=== PATIENT | female | born 1955 | race Hispanic/Latino ===

== ENCOUNTER 2021-04-07 15:06 | Emergency (ER) | payer MEDICARE ==
[~2021-04-07] VITALS: Ht 165.1 cm; Wt 102.1 kg
[2021-04-07 15:47] LABS: BASOPHILS % 0.6 % (0.0-1.0); EOSINOPHILS # (AUTO) 0.2 (0.0-0.4); EOSINOPHILS % 2.7 % (0.0-6.0); HEMATOCRIT 37.5 % (34.2-44.1); HEMOGLOBIN 12.6 g/dL (12.0-16.0); LYMPHOCYTES # (AUTO) 2.9 (1.0-3.2); LYMPHOCYTES % 40.9 % (18.0-39.1); MEAN CORPUSCULAR HEMOGLOBIN 29.9 pg (28-32); MEAN CORPUSCULAR HGB CONC 33.6 g/dL (31-35); MEAN CORPUSCULAR VOLUME 88.9 fL (81-99); MONOCYTES # (AUTO) 0.7 (0.2-0.8); MONOCYTES % 10.1 % (4.4-11.3); NEUTROPHILS # (AUTO) 3.2 (2.1-6.9); NEUTROPHILS % 45.3 % (38.7-80.0); PLATELET COUNT 256 x10e3/uL (140-360); RED BLOOD COUNT 4.22 x10e6/uL (3.6-5.1); RED CELL DISTRIBUTION WIDTH 12.7 % (11.7-14.4)
[2021-04-07 15:50] LABS: CLARITY,URINE HAZY (CLEAR); COLOR,URINE YELLOW (YELLOW); KETONES,URINE NEGATIVE (NEGATIVE); LEUKOCYTE ESTERASE ,URINE MODERATE (NEGATIVE); NITRITE,URINE NEGATIVE (NEGATIVE); PROTEIN,URINE DIPSTICK NEGATIVE (NEGATIVE); URINE UROBILINOGEN 0.2 mg/dL (0.2 - 1)
[2021-04-07 16:00] LABS: ALBUMIN 3.5 g/dL (3.5-5.0); ANION GAP 14.7 mmol/L (8-16); CALCIUM 8.6 mg/dL (8.4-10.2); CREATININE, SERUM 0.65 mg/dL (0.57-1.11); POTASSIUM 4.7 mmol/L (3.5-5.1)
[2021-04-07 16:03] LABS: BACTERIA,URINE MANY /HPF; EPITHELIAL CELLS,URINE MODERATE /LPF; WBC,URINE (MAN) 21-50 /HPF (0-5)
[2021-04-07] MEDS ORDERED: PIPERACILLIN/TAZOBACTAM 3.375 GM in SODIUM CHLORIDE 0.9% 50ML 50 ML IV ONE (16:15)
[2021-04-07] MEDS ORDERED: SODIUM CHLORIDE 0.9% 500ML 500 ML IV ONE (16:45)
[2021-04-07] MEDS ORDERED: SODIUM CHLORIDE 0.9% 500ML 500 ML ONE (16:53)
== END 2021-04-07 19:30 ==
LOC: ER 15:55
DX: R53.1 Weakness (principal); R53.83 Other fatigue; N39.0 Urinary tract infection, site not specified; E11.65 Type 2 diabetes mellitus with hyperglycemia; L89.154 Pressure ulcer of sacral region, stage 4; E03.9 Hypothyroidism, unspecified; F41.9 Anxiety disorder, unspecified; G82.20 Paraplegia, unspecified
CPT/HCPCS: 36415; 71045; 80053; 81001; 83605; 85025; 87040; 87086; 87186; 93005; 99283; J2543; J7040

== ENCOUNTER 2021-04-21 19:17 | Inpatient (IN) | payer MEDICARE, OTHER ==
[~2021-04-21] VITALS: Ht 165.1 cm; Wt 102.1 kg
[2021-04-21] MEDS: ALBUTEROL SULF 0.083% NEB SOLN 3 ML NEB NEB SCH (00:30)
[2021-04-21] MEDS ORDERED: ACETAMINOPHEN 325 MG TAB PO ONE (20:00)
[2021-04-21] MEDS ORDERED: CEFTRIAXONE 1 GM in SODIUM CHLORIDE 0.9% 50ML 50 ML IV ONE (20:00)
[2021-04-21 20:07] LABS: BASOPHILS % 0.3 % (0.0-1.0); EOSINOPHILS % 0.2 % (0.0-6.0); HEMATOCRIT 34.1 % (34.2-44.1); HEMOGLOBIN 11.3 g/dL (12.0-16.0); LYMPHOCYTES # (AUTO) 1.4 (1.0-3.2); LYMPHOCYTES % 15.1 % (18.0-39.1); MEAN CORPUSCULAR HEMOGLOBIN 29.9 pg (28-32); MEAN CORPUSCULAR HGB CONC 33.1 g/dL (31-35); MEAN CORPUSCULAR VOLUME 90.2 fL (81-99); MONOCYTES # (AUTO) 1.1 (0.2-0.8); MONOCYTES % 12.2 % (4.4-11.3); NEUTROPHILS # (AUTO) 6.4 (2.1-6.9); NEUTROPHILS % 71.5 % (38.7-80.0); PLATELET COUNT 192 x10e3/uL (140-360); RED BLOOD COUNT 3.78 x10e6/uL (3.6-5.1); RED CELL DISTRIBUTION WIDTH 12.9 % (11.7-14.4)
[2021-04-21 20:31] LABS: ANION GAP 17.3 mmol/L (8-16); BLOOD UREA NITROGEN 9 mg/dL (7-26); BUN/CREATININE RATIO 13 (6-25); CALCIUM 8.7 mg/dL (8.4-10.2); CARBON DIOXIDE 21 mmol/L (22-29); CHLORIDE 91 mmol/L (98-107); CREATINE KINASE 26 IU/L (29-168); CREATININE, SERUM 0.69 mg/dL (0.57-1.11); EST GLOMERULAR FILTRATION RATE 85 ML/MIN (60-); GLUCOSE 167 mg/dL (74-118); POTASSIUM 4.3 mmol/L (3.5-5.1); SODIUM 125 mmol/L (136-145)
[2021-04-21 20:38] LABS: CLARITY,URINE HAZY (CLEAR); COLOR,URINE YELLOW (YELLOW); KETONES,URINE NEGATIVE (NEGATIVE); LEUKOCYTE ESTERASE ,URINE LARGE (NEGATIVE); NITRITE,URINE POSITIVE (NEGATIVE); PROTEIN,URINE DIPSTICK NEGATIVE (NEGATIVE); URINE UROBILINOGEN 0.2 mg/dL (0.2 - 1)
[2021-04-21] MEDS ORDERED: SODIUM CHLORIDE 0.9% 1000ML 1,000 ML IV ONE (20:45)
[2021-04-21 20:50] LABS: BACTERIA,URINE MODERATE /HPF; RBC,URINE 0-5 /HPF (0-5); WBC,URINE (MAN) 21-50 /HPF (0-5); YEAST,URINE MANY
[2021-04-21] MEDS ORDERED: DEXTROSE 50% SYRINGE 50 ML IV PRN (21:15)
[2021-04-21] MEDS ORDERED: ONDANSETRON HCL INJ 2MG/ML 2ML 2 MG/ML VIAL IV PRN (21:30)
[2021-04-21] MEDS ORDERED: ACETAMINOPHEN 325 MG TAB PO PRN (21:30)
[2021-04-21 21:35] LABS: HYPOCHROMASIA SLIGHT; LYMPHOCYTES % (MANUAL) 8 % (19-48); METAMYELOCYTES % (MANUAL) 1 % (0-0); MONOCYTES % (MANUAL) 14 % (3.4-9.0); NEUTROPHILS % (MANUAL) 67 % (40-74); PLATELET ESTIMATE ADEQUATE; PLATELET MORPHOLOGY COMMENT NORMAL; RBC MORPHOLOGY COMMENT NORMAL
[2021-04-22] VITALS (9 sets, daily range): BP systolic 97–125; BP diastolic 61–74
[2021-04-22] MEDS ORDERED: IBUPROFEN 600 MG TAB PO STA (00:16)
[2021-04-22] MEDS ORDERED: IBUPROFEN 600 MG TAB ONE (00:17)
[2021-04-22] MEDS ORDERED: HYDROCODON-ACE1 EAC9 PO (00:25)
[2021-04-22] MEDS ORDERED: LYRICA150 MG PO (00:25)
[2021-04-22] MEDS: ALBUTEROL SULF 0.083% NEB SOLN 3 ML NEB NEB SCH ×6 (00:30→20:30)
[2021-04-22] MEDS: IPRATROPIUM BROMIDE 0.02% 2.5 ML NEB NEB SCH ×6 (00:30→22:38)
[2021-04-22] MEDS: SODIUM CHLORIDE 0.9% 1000ML 1,000 ML IV SCH ×4 (01:04→22:05)
[2021-04-22] MEDS: HYDROCODONE/APAP 10MG-325MG TAB PO PRN ×3 (02:09→15:04)
[2021-04-22 06:15] LABS: BASOPHILS % 0.3 % (0.0-1.0); EOSINOPHILS # (AUTO) 0.1 (0.0-0.4); EOSINOPHILS % 0.9 % (0.0-6.0); HEMATOCRIT 31.2 % (34.2-44.1); HEMOGLOBIN 10.4 g/dL (12.0-16.0); LYMPHOCYTES # (AUTO) 0.9 (1.0-3.2); LYMPHOCYTES % 13.2 % (18.0-39.1); MEAN CORPUSCULAR HEMOGLOBIN 29.8 pg (28-32); MEAN CORPUSCULAR HGB CONC 33.3 g/dL (31-35); MEAN CORPUSCULAR VOLUME 89.4 fL (81-99); MONOCYTES % 13.5 % (4.4-11.3); PLATELET COUNT 156 x10e3/uL (140-360); RED BLOOD COUNT 3.49 x10e6/uL (3.6-5.1)
[2021-04-22] MEDS: PREGABALIN 75 MG CAP PO SCH ×3 (06:23→18:47)
[2021-04-22 06:45] LABS: ALBUMIN 2.6 g/dL (3.5-5.0); ALBUMIN/GLOBULIN RATIO 0.9 (0.8-2.0); ANION GAP 15.9 mmol/L (8-16); CALCIUM 7.9 mg/dL (8.4-10.2); CREATININE, SERUM 0.61 mg/dL (0.57-1.11); POTASSIUM 3.9 mmol/L (3.5-5.1)
[2021-04-22 06:55] LABS: CREATINE KINASE 22 IU/L (29-168)
[2021-04-22] MEDS: CEFTRIAXONE 1 GM in SODIUM CHLORIDE 0.9% 50ML 50 ML IV SCH (08:41)
[2021-04-22] MEDS: INSULIN REGULAR, HUMAN 100 UNIT/1 ML SQ SCH ×4 (08:48→21:00)
[2021-04-22] MEDS: METHOCARBAMOL 750 MG TAB PO SCH ×2 (11:54→22:05)
[2021-04-22] MEDS ORDERED: FLUCONAZOLE 100 MG TAB PO SCH (14:00)
[2021-04-22] MEDS ORDERED: AMIODARONE HCL 150 MG/100 ML BAG IV ONE (17:45)
[2021-04-22] MEDS ORDERED: AMIODARONE HCL 100 ML IV ONE (18:00)
[2021-04-22] MEDS ORDERED: DIPHENHYDRAMINE HCL 25 MG CAP PO PRN (18:30)
[2021-04-22] MEDS ORDERED: METHYLPREDNISOLONE SOD SUCC 125 MG/2ML VIAL IV ONE (18:55)
[2021-04-22] MEDS ORDERED: DIPHENHYDRAMINE HCL INJ 50 MG/ML VIAL IV ONE (18:55)
[2021-04-22] MEDS: ENOXAPARIN SODIUM INJ 100 MG/ML SYR SC SCH (18:58)
[2021-04-22 19:54] LABS: CREATINE KINASE 16 IU/L (29-168)
[2021-04-23] VITALS: BP 137/70
[2021-04-23] MEDS: ALBUTEROL SULF 0.083% NEB SOLN 3 ML NEB NEB SCH ×6 (01:00→19:25)
[2021-04-23] MEDS: IPRATROPIUM BROMIDE 0.02% 2.5 ML NEB NEB SCH ×4 (02:00→18:20)
[2021-04-23] MEDS: HYDROCODONE/APAP 10MG-325MG TAB PO PRN ×4 (02:50→22:11)
[2021-04-23 04:00] VITALS: BP 124/74
[2021-04-23] MEDS: SODIUM CHLORIDE 0.9% 1000ML 1,000 ML IV SCH ×3 (05:15→21:59)
[2021-04-23] MEDS: PREGABALIN 75 MG CAP PO SCH ×4 (06:00→18:20)
[2021-04-23] MEDS: METHOCARBAMOL 750 MG TAB PO SCH ×4 (06:00→22:00)
[2021-04-23] MEDS: ENOXAPARIN SODIUM INJ 100 MG/ML SYR SC SCH (06:30)
[2021-04-23] MEDS ORDERED: GUAIFENESIN/DEXTROMETHORPHAN LIQD 5 ML UDC PO PRN ×2 (06:45→16:00)
[2021-04-23 07:42] VITALS: BP 124/74
[2021-04-23] MEDS: CEFTRIAXONE 1 GM in SODIUM CHLORIDE 0.9% 50ML 50 ML IV SCH (08:26)
[2021-04-23 08:52] VITALS: BP 124/74
[2021-04-23] MEDS: INSULIN REGULAR, HUMAN 100 UNIT/1 ML SQ SCH ×4 (09:21→21:50)
[2021-04-23] MEDS ORDERED: FUROSEMIDE40 MG PO ×2 (11:36→15:47)
[2021-04-23] MEDS ORDERED: VITAMIN C1000 MG PO (12:32)
[2021-04-23] MEDS ORDERED: FLUTICASONE PRO16 GM (12:32)
[2021-04-23] MEDS ORDERED: ASPIRIN81 MG PO (12:32)
[2021-04-23] MEDS ORDERED: LEVOTHYROXINE75 MCG PO (12:32)
[2021-04-23] MEDS ORDERED: METHOCARBAMOL750 MG PO (12:32)
[2021-04-23] MEDS ORDERED: METFORMIN HCL500 MG PO (12:32)
[2021-04-23] MEDS ORDERED: VITAMIN D3 COM1 EACH PO (12:32)
[2021-04-23] MEDS ORDERED: SPIRONOLACTONE25 MG PO ×2 (12:32→15:56)
[2021-04-23] MEDS ORDERED: PROTONIX20 MG PO (12:32)
[2021-04-23] MEDS ORDERED: OXYBUTYNIN CHLOR5 MG PO (12:32)
[2021-04-23] MEDS ORDERED: VOLTAREN ARTHRI20 GM (12:32)
[2021-04-23] MEDS ORDERED: LANTUS 3ML100 UNITS/ SQ (12:32)
[2021-04-23] MEDS ORDERED: MYRBETRIQ50 MG PO (12:32)
[2021-04-23] MEDS ORDERED: LOSARTAN POTASS25 MG PO (12:35)
[2021-04-23] MEDS: INSULIN GLARGINE 100 UNITS/ML VIAL SQ SCH (15:09)
[2021-04-23] MEDS ORDERED: DOCUSATE SODIU100 MG PO (15:47)
[2021-04-23] MEDS ORDERED: CRANBERRY400 M1 PO (15:47)
[2021-04-23] MEDS ORDERED: CLOTRIMAZOLE-BE15 GM TOP (15:47)
[2021-04-23] MEDS ORDERED: ORAL ANALGESIC12 ML PO (15:47)
[2021-04-23] MEDS ORDERED: ERGOCAL62.5 MCG PO (15:47)
[2021-04-23] MEDS ORDERED: DULCOLAX10 MG PR (15:47)
[2021-04-23] MEDS ORDERED: CARVEDILOL3.125 MG PO (15:47)
[2021-04-23] MEDS ORDERED: ALL DAY ALLERGY10 MG PO (15:47)
[2021-04-23] MEDS ORDERED: GUAIFENESIN-DM 15 ML PO (15:47)
[2021-04-23] MEDS ORDERED: FLONASE ALLERG9.9 ML INH (15:47)
[2021-04-23] MEDS ORDERED: CEPACOL SORE T1 EAC5 PO (15:47)
[2021-04-23] MEDS ORDERED: CLONIDINE HCL0.1 MG PO (15:47)
[2021-04-23 15:56] LABS: ANION GAP 17.6 mmol/L (8-16); CALCIUM 8.9 mg/dL (8.4-10.2); CREATININE, SERUM 0.71 mg/dL (0.57-1.11); POTASSIUM 3.6 mmol/L (3.5-5.1)
[2021-04-23] MEDS ORDERED: QUESTRAN PACKET4 GM PO (15:56)
[2021-04-23] MEDS ORDERED: MULTIVITAMINS1 EAC6 PO (15:56)
[2021-04-23] MEDS ORDERED: SIMETHICONE80 MG PO (15:56)
[2021-04-23] MEDS ORDERED: PROAIR HFA INH8.5 GM INH (15:56)
[2021-04-23] MEDS ORDERED: LOPERAMIDE2 MG PO (15:56)
[2021-04-23] MEDS ORDERED: OMEPRAZOLE20 M1 PO (15:56)
[2021-04-23] MEDS ORDERED: ACIDOPHILUS1 EAC1 PO (15:56)
[2021-04-23] MEDS ORDERED: PRO-STAT MAX L887 ML PO (15:56)
[2021-04-23] MEDS ORDERED: ZINC SULFATE50 M1 PO (15:56)
[2021-04-23] MEDS ORDERED: POTASSIUM CHLO20 ME1 PO (15:56)
[2021-04-23] MEDS ORDERED: MUPIROCIN22 GM TOP (15:56)
[2021-04-23] MEDS ORDERED: MAALOX MAXIMUM355 ML PO (15:56)
[2021-04-23] MEDS ORDERED: SODIUM CHLORIDE1 GM PO (15:56)
[2021-04-23] MEDS ORDERED: ZOFRAN4 MG PO (15:56)
[2021-04-23] MEDS ORDERED: NON-FORMULARY MEDICATION (Fluticasone Propionate* (Flonase Allergy Relief*) 1 EACH) INH PRN (16:00)
[2021-04-23] MEDS ORDERED: CHOLESTYRAMINE 4 GM PACKET PO PRN (16:00)
[2021-04-23] MEDS ORDERED: LOPERAMIDE HCL 2 MG CAP PO PRN (16:00)
[2021-04-23] MEDS ORDERED: MAGNESIUM/ALUMINUM/SIMETHICONE 30 ML UDC PO PRN (16:00)
[2021-04-23] MEDS ORDERED: ONDANSETRON HCL 4 MG ORAL DISINTEGRATING TAB PO PRN (16:00)
[2021-04-23] MEDS ORDERED: ALBUTEROL SULFATE HFA 8GM INHALATION AEROSOL INH PRN (16:00)
[2021-04-23] MEDS ORDERED: ACETAMINOPHEN 325 MG TAB PO PRN (16:00)
[2021-04-23] MEDS ORDERED: POTASSIUM CHLORIDE 20 MEQ TAB CR PO PRN (16:00)
[2021-04-23] MEDS ORDERED: DOCUSATE SODIUM 100 MG CAP PO PRN (16:00)
[2021-04-23] MEDS ORDERED: SIMETHICONE 80 MG CHEW PO PRN (16:00)
[2021-04-23] MEDS ORDERED: CLONIDINE HCL 0.1 MG TAB PO PRN (16:00)
[2021-04-23] MEDS ORDERED: CHLORASEPTIC SPRAY 177 ML BTL MM PRN (16:00)
[2021-04-23 16:11] VITALS: BP 121/72
[2021-04-23] MEDS ORDERED: CRANBERRY FRUIT 400 MG PO SCH (17:00)
[2021-04-23] MEDS ORDERED: GUAIFENESIN/DEXTROMETHORPHAN 237 ML SYRUP PO PRN (17:30)
[2021-04-23] MEDS: CARVEDILOL 3.125 MG TAB PO SCH (18:00)
[2021-04-23] MEDS: APIXABAN 5 MG TABLET PO SCH (18:19)
[2021-04-23] MEDS: FUROSEMIDE 40 MG TAB PO SCH (18:19)
[2021-04-23] MEDS: BETAMETHASONE/CLOTRIMAZOLE CR 15 GM TUBE TOP SCH (18:20)
[2021-04-23] MEDS: CEPACOL SORE THROAT LOZENGES PO SCH ×2 (18:20→21:57)
[2021-04-23 20:00] VITALS: BP 137/69
[2021-04-23] MEDS: DICLOFENAC SOD 1% GEL 100 GM TUBE TP SCH (21:57)
[2021-04-23] MEDS: OXYBUTYNIN CHLORIDE 5 MG TAB PO SCH (21:57)
[2021-04-23] MEDS: AMITRIPTYLINE HCL 25 MG TAB PO SCH (21:57)
[2021-04-24] VITALS (8 sets, daily range): BP systolic 115–136; BP diastolic 58–67
[2021-04-24] MEDS: PREGABALIN 75 MG CAP PO SCH ×4 (00:23→17:26)
[2021-04-24] MEDS: CEPACOL SORE THROAT LOZENGES PO SCH ×6 (01:06→22:00)
[2021-04-24] MEDS: ALBUTEROL SULF 0.083% NEB SOLN 3 ML NEB NEB SCH ×5 (04:10→20:40)
[2021-04-24] MEDS: IPRATROPIUM BROMIDE 0.02% 2.5 ML NEB NEB SCH ×3 (04:10→20:40)
[2021-04-24] MEDS: METHOCARBAMOL 750 MG TAB PO SCH ×6 (06:00→21:49)
[2021-04-24] MEDS: HYDROCODONE/APAP 10MG-325MG TAB PO PRN ×2 (06:51→20:22)
[2021-04-24] MEDS: LEVOTHYROXINE SODIUM 75 MCG TAB PO SCH (06:51)
[2021-04-24] MEDS: SODIUM CHLORIDE 0.9% 1000ML 1,000 ML IV SCH ×3 (07:40→21:15)
[2021-04-24] MEDS ORDERED: DICLOFENAC SOD 1% GEL 100 GM TUBE TP SCH (09:00)
[2021-04-24] MEDS ORDERED: PANTOPRAZOLE SOD 40 MG TABEC PO SCH (09:00)
[2021-04-24] MEDS ORDERED: ERGOCALCIFEROL 50,000 UNIT CAP PO SCH (09:00)
[2021-04-24] MEDS: CEFTRIAXONE 1 GM in SODIUM CHLORIDE 0.9% 50ML 50 ML IV SCH (10:53)
[2021-04-24] MEDS: LORATADINE 10 MG TAB PO SCH (10:53)
[2021-04-24] MEDS: SPIRONOLACTONE 25 MG TAB PO SCH (10:53)
[2021-04-24] MEDS: ASPIRIN 81 MG CHEW TAB PO SCH (10:53)
[2021-04-24] MEDS: FUROSEMIDE 40 MG TAB PO SCH ×2 (10:54→17:26)
[2021-04-24] MEDS: LACTOBACILLUS ACIDOPHILUS CAPSULE PO SCH (10:54)
[2021-04-24] MEDS: OXYBUTYNIN CHLORIDE 5 MG TAB PO SCH ×3 (10:54→21:46)
[2021-04-24] MEDS: METFORMIN HCL 500 MG TAB PO SCH (10:54)
[2021-04-24] MEDS: LOSARTAN POTASSIUM 25 MG TAB PO SCH (10:54)
[2021-04-24] MEDS: APIXABAN 5 MG TABLET PO SCH ×2 (10:54→17:26)
[2021-04-24] MEDS: CARVEDILOL 3.125 MG TAB PO SCH ×2 (10:54→17:26)
[2021-04-24] MEDS: MULTIVITAMINS/MINERALS TAB PO SCH (10:54)
[2021-04-24] MEDS: SODIUM CHLORIDE 1 GM TAB PO SCH (10:55)
[2021-04-24] MEDS: ZINC SULFATE 220 MG CAP PO SCH (10:55)
[2021-04-24] MEDS: BISACODYL 10 MG SUPP PR SCH (10:55)
[2021-04-24] MEDS: ASCORBIC ACID 500 MG TAB PO SCH (10:55)
[2021-04-24] MEDS: PANTOPRAZOLE SOD 40 MG TABEC PO SCH (10:55)
[2021-04-24] MEDS: INSULIN REGULAR, HUMAN 100 UNIT/1 ML SQ SCH ×4 (10:59→22:15)
[2021-04-24] MEDS: INSULIN GLARGINE 100 UNITS/ML VIAL SQ SCH ×2 (11:00→17:43)
[2021-04-24] MEDS: FLUTICASONE PROPIONATE NASAL SPRAY NS SCH (11:13)
[2021-04-24] MEDS: PROTEIN HYDROLYS PO SCH (11:13)
[2021-04-24] MEDS: AMINO ACIDS PO SCH (11:13)
[2021-04-24] MEDS: BETAMETHASONE/CLOTRIMAZOLE CR 15 GM TUBE TOP SCH ×2 (11:14→17:26)
[2021-04-24] MEDS: MUPIROCIN 2% OINT 22 GM TUBE TOP SCH (11:14)
[2021-04-24] MEDS: DICLOFENAC SOD 1% GEL 100 GM TUBE TP SCH ×3 (11:14→22:34)
[2021-04-24] MEDS: AMITRIPTYLINE HCL 25 MG TAB PO SCH (21:46)
[2021-04-24] MEDS: PIPERACILLIN/TAZOBACTAM 3.375 GM in SODIUM CHLORIDE 0.9% 50ML 50 ML IV SCH (23:17)
[2021-04-25] VITALS (7 sets, daily range): BP systolic 101–130; BP diastolic 43–72
[2021-04-25] MEDS: ALBUTEROL SULF 0.083% NEB SOLN 3 ML NEB NEB SCH ×6 (00:02→20:43)
[2021-04-25] MEDS: PREGABALIN 75 MG CAP PO SCH ×4 (00:10→16:08)
[2021-04-25] MEDS: IPRATROPIUM BROMIDE 0.02% 2.5 ML NEB NEB SCH ×4 (01:00→20:43)
[2021-04-25] MEDS: CEPACOL SORE THROAT LOZENGES PO SCH ×7 (01:55→23:00)
[2021-04-25] MEDS: HYDROCODONE/APAP 10MG-325MG TAB PO PRN ×3 (04:00→21:47)
[2021-04-25] MEDS: SODIUM CHLORIDE 0.9% 1000ML 1,000 ML IV SCH ×3 (05:59→21:03)
[2021-04-25] MEDS: METHOCARBAMOL 750 MG TAB PO SCH ×6 (05:59→22:00)
[2021-04-25] MEDS: LEVOTHYROXINE SODIUM 75 MCG TAB PO SCH (05:59)
[2021-04-25] MEDS: PIPERACILLIN/TAZOBACTAM 3.375 GM in SODIUM CHLORIDE 0.9% 50ML 50 ML IV SCH ×3 (05:59→21:44)
[2021-04-25] MEDS: INSULIN REGULAR, HUMAN 100 UNIT/1 ML SQ SCH ×4 (08:00→21:07)
[2021-04-25] MEDS: INSULIN GLARGINE 100 UNITS/ML VIAL SQ SCH ×2 (09:00→16:15)
[2021-04-25] MEDS: PROTEIN HYDROLYS PO SCH (09:12)
[2021-04-25] MEDS: FLUTICASONE PROPIONATE NASAL SPRAY NS SCH (09:12)
[2021-04-25] MEDS: AMINO ACIDS PO SCH (09:12)
[2021-04-25] MEDS: ASPIRIN 81 MG CHEW TAB PO SCH (09:36)
[2021-04-25] MEDS: SPIRONOLACTONE 25 MG TAB PO SCH (09:36)
[2021-04-25] MEDS: LORATADINE 10 MG TAB PO SCH (09:37)
[2021-04-25] MEDS: CARVEDILOL 3.125 MG TAB PO SCH ×2 (09:37→16:08)
[2021-04-25] MEDS: OXYBUTYNIN CHLORIDE 5 MG TAB PO SCH ×3 (09:38→21:03)
[2021-04-25] MEDS: LOSARTAN POTASSIUM 25 MG TAB PO SCH (09:38)
[2021-04-25] MEDS: DICLOFENAC SOD 1% GEL 100 GM TUBE TP SCH ×3 (09:39→21:03)
[2021-04-25] MEDS: MULTIVITAMINS/MINERALS TAB PO SCH (09:39)
[2021-04-25] MEDS: METFORMIN HCL 500 MG TAB PO SCH (09:39)
[2021-04-25] MEDS: FUROSEMIDE 40 MG TAB PO SCH ×2 (09:39→16:08)
[2021-04-25] MEDS: PANTOPRAZOLE SOD 40 MG TABEC PO SCH (09:39)
[2021-04-25] MEDS: LACTOBACILLUS ACIDOPHILUS CAPSULE PO SCH (09:39)
[2021-04-25] MEDS: APIXABAN 5 MG TABLET PO SCH ×2 (09:39→16:08)
[2021-04-25] MEDS: MUPIROCIN 2% OINT 22 GM TUBE TOP SCH (09:40)
[2021-04-25] MEDS: ZINC SULFATE 220 MG CAP PO SCH (09:40)
[2021-04-25] MEDS: SODIUM CHLORIDE 1 GM TAB PO SCH (09:40)
[2021-04-25] MEDS: BETAMETHASONE/CLOTRIMAZOLE CR 15 GM TUBE TOP SCH ×2 (09:40→15:43)
[2021-04-25] MEDS: BISACODYL 10 MG SUPP PR SCH (09:44)
[2021-04-25] MEDS: ASCORBIC ACID 500 MG TAB PO SCH (09:44)
[2021-04-25] MEDS: AMITRIPTYLINE HCL 25 MG TAB PO SCH (21:03)
[2021-04-26] MEDS: PREGABALIN 75 MG CAP PO SCH ×3 (00:02→12:10)
[2021-04-26 00:14] VITALS: BP 130/50
[2021-04-26] MEDS: HYDROCODONE/APAP 10MG-325MG TAB PO PRN ×2 (04:10→12:10)
[2021-04-26] MEDS: ALBUTEROL SULF 0.083% NEB SOLN 3 ML NEB NEB SCH ×4 (04:10→14:15)
[2021-04-26] MEDS: IPRATROPIUM BROMIDE 0.02% 2.5 ML NEB NEB SCH ×3 (04:10→14:15)
[2021-04-26 04:47] VITALS: BP 105/41
[2021-04-26 05:16] VITALS: BP 105/41
[2021-04-26] MEDS: SODIUM CHLORIDE 0.9% 1000ML 1,000 ML IV SCH (05:29)
[2021-04-26] MEDS: PIPERACILLIN/TAZOBACTAM 3.375 GM in SODIUM CHLORIDE 0.9% 50ML 50 ML IV SCH ×2 (05:46→14:00)
[2021-04-26] MEDS: LEVOTHYROXINE SODIUM 75 MCG TAB PO SCH (05:46)
[2021-04-26] MEDS: METHOCARBAMOL 750 MG TAB PO SCH ×4 (05:46→15:41)
[2021-04-26] MEDS: CEPACOL SORE THROAT LOZENGES PO SCH ×3 (05:46→14:00)
[2021-04-26 08:00] VITALS: BP 106/46
[2021-04-26] MEDS: FLUTICASONE PROPIONATE NASAL SPRAY NS SCH (09:00)
[2021-04-26] MEDS: AMINO ACIDS PO SCH (09:00)
[2021-04-26] MEDS: PROTEIN HYDROLYS PO SCH (09:00)
[2021-04-26] MEDS: SPIRONOLACTONE 25 MG TAB PO SCH (09:14)
[2021-04-26] MEDS: LORATADINE 10 MG TAB PO SCH (09:14)
[2021-04-26] MEDS: ASPIRIN 81 MG CHEW TAB PO SCH (09:14)
[2021-04-26] MEDS: OXYBUTYNIN CHLORIDE 5 MG TAB PO SCH ×2 (09:16→15:41)
[2021-04-26] MEDS: APIXABAN 5 MG TABLET PO SCH ×2 (09:16→17:30)
[2021-04-26] MEDS: ASCORBIC ACID 500 MG TAB PO SCH (09:17)
[2021-04-26] MEDS: FUROSEMIDE 40 MG TAB PO SCH ×2 (09:17→17:30)
[2021-04-26] MEDS: MULTIVITAMINS/MINERALS TAB PO SCH (09:17)
[2021-04-26] MEDS: PANTOPRAZOLE SOD 40 MG TABEC PO SCH (09:17)
[2021-04-26] MEDS: LACTOBACILLUS ACIDOPHILUS CAPSULE PO SCH (09:17)
[2021-04-26] MEDS: SODIUM CHLORIDE 1 GM TAB PO SCH (09:17)
[2021-04-26] MEDS: METFORMIN HCL 500 MG TAB PO SCH (09:17)
[2021-04-26] MEDS: ZINC SULFATE 220 MG CAP PO SCH (09:18)
[2021-04-26] MEDS: BISACODYL 10 MG SUPP PR SCH (09:18)
[2021-04-26] MEDS: DICLOFENAC SOD 1% GEL 100 GM TUBE TP SCH ×2 (09:19→15:41)
[2021-04-26] MEDS: MUPIROCIN 2% OINT 22 GM TUBE TOP SCH (09:19)
[2021-04-26] MEDS: BETAMETHASONE/CLOTRIMAZOLE CR 15 GM TUBE TOP SCH ×2 (09:19→17:31)
[2021-04-26] MEDS: CARVEDILOL 3.125 MG TAB PO SCH ×2 (09:36→17:35)
[2021-04-26] MEDS: LOSARTAN POTASSIUM 25 MG TAB PO SCH (09:37)
[2021-04-26 12:00] VITALS: BP 141/57
[2021-04-26] MEDS: INSULIN REGULAR, HUMAN 100 UNIT/1 ML SQ SCH ×3 (12:00→17:35)
[2021-04-26] MEDS: INSULIN GLARGINE 100 UNITS/ML VIAL SQ SCH ×2 (12:18→17:34)
[2021-04-26 16:00] VITALS: BP 95/41
== END 2021-04-26 19:07 | DRG 698 ==
LOC: ER 19:34 → ERHOLD 21:18 → MED/SURG3 04-22 00:35
DX: T83.518A Infection and inflammatory reaction due to other urinary catheter, initial encounter (principal); A41.9 Sepsis, unspecified organism; L89.154 Pressure ulcer of sacral region, stage 4; E87.1 Hypo-osmolality and hyponatremia; B37.49 Other urogenital candidiasis; G82.20 Paraplegia, unspecified; I48.0 Paroxysmal atrial fibrillation; Z79.01 Long term (current) use of anticoagulants; Z20.822 Contact with and (suspected) exposure to COVID-19; E03.9 Hypothyroidism, unspecified; D64.9 Anemia, unspecified; E83.51 Hypocalcemia; N32.89 Other specified disorders of bladder; N39.46 Mixed incontinence; F41.9 Anxiety disorder, unspecified
CPT/HCPCS: 36415; 71045; 74176; 80048; 80053; 81001; 82550; 82553; 82948; 83605; 83880; 84484; 85025; 87040; 87086; 87186; 93005; 93306; 94640; 99251; 99284; J0456; J0696; J1200; J1650; J1815; J1817; J2543; J2930; J7030; J7050; U0002

== ENCOUNTER 2021-05-22 08:07 | Inpatient (IN) | payer MEDICARE, OTHER ==
[~2021-05-22] VITALS: Ht 165.1 cm; Wt 102.1 kg
[~2021-05-22 08:07] MED LIST: ACIDOPHILUS1 EAC1 PO; ALL DAY ALLERGY10 MG PO; ASPIRIN81 MG PO; CARVEDILOL3.125 MG PO; CEPACOL SORE T1 EAC5 PO; CLONIDINE HCL0.1 MG PO; CLOTRIMAZOLE-BE15 GM TOP; CRANBERRY400 M1 PO; DOCUSATE SODIU100 MG PO; DULCOLAX10 MG PR; ERGOCAL62.5 MCG PO; FLONASE ALLERG9.9 ML INH; FLUTICASONE PRO16 GM; FUROSEMIDE40 MG PO; GUAIFENESIN-DM 15 ML PO; HYDROCODON-ACE1 EAC9 PO; LANTUS 3ML100 UNITS/ SQ; LEVOTHYROXINE75 MCG PO; LOPERAMIDE2 MG PO; LOSARTAN POTASS25 MG PO; LYRICA150 MG PO; MAALOX MAXIMUM355 ML PO; METFORMIN HCL500 MG PO; METHOCARBAMOL750 MG PO; MULTIVITAMINS1 EAC6 PO; MUPIROCIN22 GM TOP; MYRBETRIQ50 MG PO; OMEPRAZOLE20 M1 PO; ORAL ANALGESIC12 ML PO; OXYBUTYNIN CHLOR5 MG PO; POTASSIUM CHLO20 ME1 PO; PRO-STAT MAX L887 ML PO; PROAIR HFA INH8.5 GM INH; PROTONIX20 MG PO; QUESTRAN PACKET4 GM PO; SIMETHICONE80 MG PO; SODIUM CHLORIDE1 GM PO; SPIRONOLACTONE25 MG PO; VITAMIN C1000 MG PO; VITAMIN D3 COM1 EACH PO; VOLTAREN ARTHRI20 GM; ZINC SULFATE50 M1 PO; ZOFRAN4 MG PO
[2021-05-22] MEDS ORDERED: ASPIRIN 81 MG CHEW TAB PO STA (08:21)
[2021-05-22] MEDS ORDERED: ASPIRIN 81 MG CHEW TAB PO ONE (08:30)
[2021-05-22 08:48] LABS: BASOPHILS % 0.2 % (0.0-1.0); EOSINOPHILS # (AUTO) 0.1 (0.0-0.4); EOSINOPHILS % 0.9 % (0.0-6.0); HEMATOCRIT 30.9 % (34.2-44.1); HEMOGLOBIN 10.1 g/dL (12.0-16.0); LYMPHOCYTES # (AUTO) 2.1 (1.0-3.2); LYMPHOCYTES % 16.7 % (18.0-39.1); MEAN CORPUSCULAR HEMOGLOBIN 28.8 pg (28-32); MEAN CORPUSCULAR HGB CONC 32.7 g/dL (31-35); MONOCYTES % 7.4 % (4.4-11.3); NEUTROPHILS # (AUTO) 9.5 (2.1-6.9); NEUTROPHILS % 74.3 % (38.7-80.0); PLATELET COUNT 296 x10e3/uL (140-360); RED BLOOD COUNT 3.51 x10e6/uL (3.6-5.1); RED CELL DISTRIBUTION WIDTH 14.1 % (11.7-14.4)
[2021-05-22 09:07] LABS: ALANINE AMINOTRANSFERASE 18 IU/L (0-55); ALBUMIN 2.9 g/dL (3.5-5.0); ALBUMIN/GLOBULIN RATIO 0.6 (0.8-2.0); ALKALINE PHOSPHATASE 111 IU/L (40-150); ANION GAP 16.5 mmol/L (8-16); BLOOD UREA NITROGEN 5 mg/dL (7-26); BUN/CREATININE RATIO 8 (6-25); CALCIUM 8.8 mg/dL (8.4-10.2); CARBON DIOXIDE 25 mmol/L (22-29); CHLORIDE 85 mmol/L (98-107); CREATINE KINASE 73 IU/L (29-168); CREATININE, SERUM 0.64 mg/dL (0.57-1.11); EST GLOMERULAR FILTRATION RATE 92 ML/MIN (60-); GLUCOSE 260 mg/dL (74-118); POTASSIUM 3.5 mmol/L (3.5-5.1); SODIUM 123 mmol/L (136-145)
[2021-05-22] MEDS ORDERED: PIPERACILLIN/TAZOBACTAM 3.375 GM in SODIUM CHLORIDE 0.9% 50ML 50 ML IV ONE (11:00)
[2021-05-22] MEDS ORDERED: ALBUTEROL/IPRATROPIUM 3 ML NEB NEB NR (11:12)
[2021-05-22 11:15] LABS: CLARITY,URINE CLOUDY (CLEAR); COLOR,URINE YELLOW (YELLOW)
[2021-05-22 11:16] LABS: KETONES,URINE 1+ (NEGATIVE); LEUKOCYTE ESTERASE ,URINE LARGE (NEGATIVE); NITRITE,URINE POSITIVE (NEGATIVE); PROTEIN,URINE DIPSTICK 1+ (NEGATIVE); URINE UROBILINOGEN 0.2 mg/dL (0.2 - 1)
[2021-05-22 11:26] LABS: BACTERIA,URINE MANY /HPF; EPITHELIAL CELLS,URINE FEW /LPF; WBC,URINE (MAN) >50 /HPF (0-5)
[2021-05-22] MEDS ORDERED: SODIUM CHLORIDE 0.9% 500ML 500 ML IV ONE (11:30)
[2021-05-22] MEDS ORDERED: ACETAMINOPHEN 325 MG TAB PO PRN (13:00)
[2021-05-22] MEDS ORDERED: [UNRECOGNIZED DRUG - OTHER] PO SCH (13:00)
[2021-05-22] MEDS ORDERED: ALBUTEROL SULFATE HFA 8GM INHALATION AEROSOL INH PRN (13:00)
[2021-05-22] MEDS ORDERED: CLONIDINE HCL 0.1 MG TAB PO PRN (13:00)
[2021-05-22] MEDS ORDERED: CHOLESTYRAMINE 4 GM PACKET PO PRN (13:00)
[2021-05-22] MEDS ORDERED: ONDANSETRON HCL INJ 2MG/ML 2ML 2 MG/ML VIAL IV PRN (13:00)
[2021-05-22] MEDS ORDERED: MAGNESIUM/ALUMINUM/SIMETHICONE 30 ML UDC PO PRN (13:00)
[2021-05-22] MEDS ORDERED: HERB PO SCH (13:00)
[2021-05-22] MEDS ORDERED: FOLIC ACID PO SCH (13:00)
[2021-05-22] MEDS ORDERED: MV MN PO SCH (13:00)
[2021-05-22] MEDS ORDERED: SIMETHICONE 80 MG CHEW PO PRN (13:00)
[2021-05-22] MEDS ORDERED: POTASSIUM CHLORIDE 20 MEQ TAB CR PO PRN (13:00)
[2021-05-22] MEDS ORDERED: DOCUSATE SODIUM 100 MG CAP PO PRN (13:00)
[2021-05-22] MEDS ORDERED: NON-FORMULARY MEDICATION (Ondansetron Hcl* (Zofran*) 4 MG) PO PRN (13:00)
[2021-05-22] MEDS ORDERED: IRON PO SCH (13:00)
[2021-05-22] MEDS ORDERED: NON-FORMULARY MEDICATION (Fluticasone Propionate* (Flonase Allergy Relief*) 1 EACH) INH PRN (13:00)
[2021-05-22] MEDS ORDERED: GUAIFENESIN/DEXTROMETHORPHAN 237 ML SYRUP PO PRN (13:00)
[2021-05-22] MEDS ORDERED: CHLORASEPTIC SPRAY 177 ML BTL MM PRN (13:00)
[2021-05-22] MEDS ORDERED: METHOCARBAMOL 750 MG TAB PO SCH (14:00)
[2021-05-22] MEDS ORDERED: MENTHOL PO SCH (14:00)
[2021-05-22] MEDS ORDERED: BENZOCAINE PO SCH (14:00)
[2021-05-22] MEDS ORDERED: LOPERAMIDE HCL 2 MG CAP PO PRN (15:00)
[2021-05-22] MEDS: SODIUM CHLORIDE 0.45% 1,000 ML IV SCH ×2 (15:20→20:30)
[2021-05-22] MEDS: OXYBUTYNIN CHLORIDE 5 MG TAB PO SCH ×2 (16:05→20:30)
[2021-05-22] MEDS ORDERED: INSULIN LISPRO 100 UNIT/1 ML 3ML VIAL SQ SCH ×2 (16:30→21:00)
[2021-05-22] MEDS ORDERED: PIPERACILLIN/TAZOBACTAM 3.375 GM in SODIUM CHLORIDE 0.9% 50ML 50 ML IV SCH (17:00)
[2021-05-22] MEDS: BETAMETHASONE/CLOTRIMAZOLE CR 15 GM TUBE TOP SCH (17:00)
[2021-05-22] MEDS: CRANBERRY FRUIT 400 MG PO SCH (17:20)
[2021-05-22] MEDS: CARVEDILOL 3.125 MG TAB PO SCH (17:21)
[2021-05-22] MEDS: PREGABALIN 75 MG CAP PO SCH ×2 (18:00→23:17)
[2021-05-22] MEDS: DICLOFENAC SOD 1% GEL 100 GM TUBE TP SCH (18:00)
[2021-05-22] MEDS: PIPERACILLIN/TAZOBACTAM 3.375 GM in SODIUM CHLORIDE 0.9% 50ML 50 ML IV SCH ×2 (18:00→23:17)
[2021-05-22 19:15] VITALS: BP_SYST 130; BP_SYST 149; BP_DIAS 84
[2021-05-22 20:00] VITALS: BP 149/84
[2021-05-22] MEDS ORDERED: DEXTROSE 50% SYRINGE 50 ML IV PRN (20:45)
[2021-05-22] MEDS: INSULIN REGULAR, HUMAN 100 UNIT/1 ML SQ SCH (20:48)
[2021-05-22] MEDS: INSULIN GLARGINE 100 UNITS/ML VIAL SQ SCH (20:48)
[2021-05-22] MEDS: HYDROCODONE/APAP 10MG-325MG TAB PO PRN (23:17)
[2021-05-23] VITALS (8 sets, daily range): BP systolic 102–171; BP diastolic 55–105
[2021-05-23 04:48] LABS: BASOPHILS % 0.3 % (0.0-1.0); EOSINOPHILS # (AUTO) 0.1 (0.0-0.4); EOSINOPHILS % 1.2 % (0.0-6.0); HEMATOCRIT 28.3 % (34.2-44.1); HEMOGLOBIN 9.1 g/dL (12.0-16.0); LYMPHOCYTES % 19.3 % (18.0-39.1); MEAN CORPUSCULAR HEMOGLOBIN 28.4 pg (28-32); MEAN CORPUSCULAR HGB CONC 32.2 g/dL (31-35); MEAN CORPUSCULAR VOLUME 88.4 fL (81-99); MONOCYTES % 9.8 % (4.4-11.3); NEUTROPHILS % 68.8 % (38.7-80.0); PLATELET COUNT 304 x10e3/uL (140-360)
[2021-05-23 05:06] LABS: ALANINE AMINOTRANSFERASE 17 IU/L (0-55); ALBUMIN 2.5 g/dL (3.5-5.0); ALBUMIN/GLOBULIN RATIO 0.6 (0.8-2.0); ALKALINE PHOSPHATASE 89 IU/L (40-150); ANION GAP 13.9 mmol/L (8-16); BLOOD UREA NITROGEN < 5 mg/dL (7-26); CALCIUM 8.3 mg/dL (8.4-10.2); CARBON DIOXIDE 23 mmol/L (22-29); CHLORIDE 95 mmol/L (98-107); CHOL/HDL RATIO 5.6 (3.0-3.6); CHOLESTEROL 162 MD/DL (0-199); CREATININE, SERUM 0.53 mg/dL (0.57-1.11); EST GLOMERULAR FILTRATION RATE 115 ML/MIN (60-); GLUCOSE 163 mg/dL (74-118); HDL CHOLESTEROL 29 MG/DL (40-60); LDL CHOLESTEROL 94 MG/DL (60-130); SODIUM 129 mmol/L (136-145); TRIGLYCERIDES 196 MG/DL (0-149)
[2021-05-23] MEDS: DICLOFENAC SOD 1% GEL 100 GM TUBE TP SCH ×4 (05:06→17:45)
[2021-05-23] MEDS: LEVOTHYROXINE SODIUM 75 MCG TAB PO SCH (05:06)
[2021-05-23] MEDS: PIPERACILLIN/TAZOBACTAM 3.375 GM in SODIUM CHLORIDE 0.9% 50ML 50 ML IV SCH ×3 (05:06→17:45)
[2021-05-23] MEDS: PREGABALIN 75 MG CAP PO SCH ×3 (05:06→17:45)
[2021-05-23 05:08] LABS: BUN/CREATININE RATIO 9 (6-25)
[2021-05-23 05:11] LABS: POTASSIUM 2.9 mmol/L (3.5-5.1)
[2021-05-23 06:26] LABS: CREATINE KINASE 125 IU/L (29-168)
[2021-05-23] MEDS: INSULIN REGULAR, HUMAN 100 UNIT/1 ML SQ SCH ×4 (08:30→20:22)
[2021-05-23] MEDS ORDERED: BISACODYL 10 MG SUPP PR SCH (09:00)
[2021-05-23] MEDS: PROTEIN HYDROLYS PO SCH (09:00)
[2021-05-23] MEDS: AMINO ACIDS PO SCH (09:00)
[2021-05-23] MEDS: INSULIN GLARGINE 100 UNITS/ML VIAL SQ SCH ×2 (09:00→20:22)
[2021-05-23] MEDS: BETAMETHASONE/CLOTRIMAZOLE CR 15 GM TUBE TOP SCH ×2 (09:00→17:00)
[2021-05-23] MEDS ORDERED: PANTOPRAZOLE SOD 40 MG TABEC PO SCH (09:00)
[2021-05-23] MEDS ORDERED: SODIUM CHLORIDE 1 GM TAB PO SCH ×2 (09:00→10:45)
[2021-05-23] MEDS: CRANBERRY FRUIT 400 MG PO SCH ×2 (09:00→17:00)
[2021-05-23] MEDS ORDERED: ASPIRIN 81 MG ENTERIC COATED PO SCH (09:00)
[2021-05-23 09:42] LABS: BLOOD UREA NITROGEN < 5 mg/dL (7-26); CALCIUM 8.3 mg/dL (8.4-10.2); CARBON DIOXIDE 24 mmol/L (22-29); CHLORIDE 98 mmol/L (98-107); CREATININE, SERUM 0.53 mg/dL (0.57-1.11); EST GLOMERULAR FILTRATION RATE 115 ML/MIN (60-); GLUCOSE 181 mg/dL (74-118); SODIUM 132 mmol/L (136-145)
[2021-05-23 09:48] LABS: BUN/CREATININE RATIO 9 (6-25)
[2021-05-23] MEDS ORDERED: POTASSIUM CHLORIDE 20 MEQ TAB CR PO ONE (10:45)
[2021-05-23] MEDS: OXYBUTYNIN CHLORIDE 5 MG TAB PO SCH ×3 (12:12→21:14)
[2021-05-23] MEDS: LORATADINE 10 MG TAB PO SCH (12:12)
[2021-05-23] MEDS: MULTIVITAMINS/MINERALS TAB PO SCH (12:12)
[2021-05-23] MEDS: ZINC SULFATE 220 MG CAP PO SCH (12:13)
[2021-05-23] MEDS: ASCORBIC ACID 500 MG TAB PO SCH (12:13)
[2021-05-23] MEDS: PANTOPRAZOLE SOD 40 MG TABEC PO SCH (12:13)
[2021-05-23] MEDS: LACTOBACILLUS ACIDOPHILUS CAPSULE PO SCH (12:13)
[2021-05-23] MEDS: LOSARTAN POTASSIUM 25 MG TAB PO SCH (12:16)
[2021-05-23] MEDS: ASPIRIN 81 MG CHEW TAB PO SCH (12:16)
[2021-05-23] MEDS: CARVEDILOL 3.125 MG TAB PO SCH ×2 (12:16→17:45)
[2021-05-23] MEDS: METFORMIN HCL 500 MG TAB PO SCH (12:17)
[2021-05-23 13:06] LABS: CREATINE KINASE MB 1.7 ng/mL (0-5.0)
[2021-05-23] MEDS: HYDROCODONE/APAP 10MG-325MG TAB PO PRN ×2 (16:17→22:19)
[2021-05-23] MEDS: FLUTICASONE PROPIONATE NASAL SPRAY NS SCH (17:45)
[2021-05-23] MEDS: SODIUM CHLORIDE 1 GM TAB PO SCH (17:45)
[2021-05-23 17:53] LABS: ANION GAP 13.8 mmol/L (8-16); BLOOD UREA NITROGEN < 5 mg/dL (7-26); CALCIUM 8.7 mg/dL (8.4-10.2); CARBON DIOXIDE 24 mmol/L (22-29); CHLORIDE 103 mmol/L (98-107); CREATININE, SERUM 0.63 mg/dL (0.57-1.11); EST GLOMERULAR FILTRATION RATE 94 ML/MIN (60-); GLUCOSE 130 mg/dL (74-118); POTASSIUM 3.8 mmol/L (3.5-5.1); SODIUM 137 mmol/L (136-145)
[2021-05-23 17:54] LABS: BUN/CREATININE RATIO 8 (6-25)
[2021-05-23] MEDS ORDERED: MAGNESIUM SULFATE 2GM/50ML 50 ML IV ONE (18:30)
[2021-05-23] MEDS ORDERED: SODIUM CHLORIDE 0.9% 250ML 250 ML ONE (21:12)
[2021-05-24] VITALS (8 sets, daily range): BP systolic 113–134; BP diastolic 58–74
[2021-05-24] MEDS: PIPERACILLIN/TAZOBACTAM 3.375 GM in SODIUM CHLORIDE 0.9% 50ML 50 ML IV SCH ×4 (00:15→17:59)
[2021-05-24] MEDS: DICLOFENAC SOD 1% GEL 100 GM TUBE TP SCH ×4 (00:15→18:00)
[2021-05-24] MEDS: PREGABALIN 75 MG CAP PO SCH ×4 (00:15→17:59)
[2021-05-24 05:34] LABS: ANION GAP 13.5 mmol/L (8-16); BLOOD UREA NITROGEN < 5 mg/dL (7-26); CALCIUM 8.1 mg/dL (8.4-10.2); CARBON DIOXIDE 22 mmol/L (22-29); CHLORIDE 107 mmol/L (98-107); CREATININE, SERUM 0.65 mg/dL (0.57-1.11); EST GLOMERULAR FILTRATION RATE 91 ML/MIN (60-); GLUCOSE 139 mg/dL (74-118); POTASSIUM 3.5 mmol/L (3.5-5.1); SODIUM 139 mmol/L (136-145)
[2021-05-24 05:42] LABS: BUN/CREATININE RATIO 8 (6-25)
[2021-05-24] MEDS: LEVOTHYROXINE SODIUM 75 MCG TAB PO SCH (06:00)
[2021-05-24] MEDS: HYDROCODONE/APAP 10MG-325MG TAB PO PRN ×3 (06:49→17:57)
[2021-05-24] MEDS: INSULIN REGULAR, HUMAN 100 UNIT/1 ML SQ SCH ×4 (07:30→21:35)
[2021-05-24] MEDS: CRANBERRY FRUIT 400 MG PO SCH ×2 (09:00→17:00)
[2021-05-24] MEDS: LORATADINE 10 MG TAB PO SCH (09:00)
[2021-05-24] MEDS: ZINC SULFATE 220 MG CAP PO SCH (09:00)
[2021-05-24] MEDS: SODIUM CHLORIDE 1 GM TAB PO SCH ×2 (09:00→17:00)
[2021-05-24] MEDS: ASPIRIN 81 MG CHEW TAB PO SCH (09:00)
[2021-05-24] MEDS: ASCORBIC ACID 500 MG TAB PO SCH (09:00)
[2021-05-24] MEDS: PANTOPRAZOLE SOD 40 MG TABEC PO SCH (09:00)
[2021-05-24] MEDS: LOSARTAN POTASSIUM 25 MG TAB PO SCH (09:00)
[2021-05-24] MEDS: CARVEDILOL 3.125 MG TAB PO SCH ×2 (09:00→17:00)
[2021-05-24] MEDS: PROTEIN HYDROLYS PO SCH (09:00)
[2021-05-24] MEDS: FLUTICASONE PROPIONATE NASAL SPRAY NS SCH (09:00)
[2021-05-24] MEDS: INSULIN GLARGINE 100 UNITS/ML VIAL SQ SCH ×2 (09:00→21:35)
[2021-05-24] MEDS: AMINO ACIDS PO SCH (09:00)
[2021-05-24] MEDS: METFORMIN HCL 500 MG TAB PO SCH (09:00)
[2021-05-24] MEDS: MULTIVITAMINS/MINERALS TAB PO SCH (09:00)
[2021-05-24] MEDS: OXYBUTYNIN CHLORIDE 5 MG TAB PO SCH ×3 (09:00→21:35)
[2021-05-24] MEDS: LACTOBACILLUS ACIDOPHILUS CAPSULE PO SCH (09:00)
[2021-05-24] MEDS: MUPIROCIN 2% OINT 22 GM TUBE TOP SCH (11:08)
[2021-05-24] MEDS: BETAMETHASONE/CLOTRIMAZOLE CR 15 GM TUBE TOP SCH ×2 (11:09→17:00)
[2021-05-24] MEDS ORDERED: ONDANSETRON HCL 4 MG ORAL DISINTEGRATING TAB PO PRN (11:30)
[2021-05-25] VITALS (9 sets, daily range): BP systolic 131–157; BP diastolic 61–97
[2021-05-25] MEDS: HYDROCODONE/APAP 10MG-325MG TAB PO PRN ×3 (00:13→17:52)
[2021-05-25] MEDS: LEVOTHYROXINE SODIUM 75 MCG TAB PO SCH (06:15)
[2021-05-25] MEDS: DICLOFENAC SOD 1% GEL 100 GM TUBE TP SCH ×4 (06:15→17:46)
[2021-05-25] MEDS: PREGABALIN 75 MG CAP PO SCH ×5 (06:15→23:37)
[2021-05-25] MEDS: PIPERACILLIN/TAZOBACTAM 3.375 GM in SODIUM CHLORIDE 0.9% 50ML 50 ML IV SCH ×6 (06:15→23:37)
[2021-05-25] MEDS: INSULIN REGULAR, HUMAN 100 UNIT/1 ML SQ SCH ×4 (07:30→21:00)
[2021-05-25] MEDS: CRANBERRY FRUIT 400 MG PO SCH ×2 (09:00→15:37)
[2021-05-25] MEDS: AMINO ACIDS PO SCH (09:00)
[2021-05-25] MEDS: FLUTICASONE PROPIONATE NASAL SPRAY NS SCH (09:00)
[2021-05-25] MEDS: PROTEIN HYDROLYS PO SCH (09:00)
[2021-05-25] MEDS: METFORMIN HCL 500 MG TAB PO SCH (09:40)
[2021-05-25] MEDS: LOSARTAN POTASSIUM 25 MG TAB PO SCH (09:41)
[2021-05-25] MEDS: CARVEDILOL 3.125 MG TAB PO SCH ×2 (09:41→17:45)
[2021-05-25] MEDS: MULTIVITAMINS/MINERALS TAB PO SCH (09:41)
[2021-05-25] MEDS: LORATADINE 10 MG TAB PO SCH (09:41)
[2021-05-25] MEDS: ASPIRIN 81 MG CHEW TAB PO SCH (09:41)
[2021-05-25] MEDS: OXYBUTYNIN CHLORIDE 5 MG TAB PO SCH ×3 (09:42→21:00)
[2021-05-25] MEDS: LACTOBACILLUS ACIDOPHILUS CAPSULE PO SCH (09:42)
[2021-05-25] MEDS: ASCORBIC ACID 500 MG TAB PO SCH (09:42)
[2021-05-25] MEDS: PANTOPRAZOLE SOD 40 MG TABEC PO SCH (09:42)
[2021-05-25] MEDS: ZINC SULFATE 220 MG CAP PO SCH (09:42)
[2021-05-25] MEDS: SODIUM CHLORIDE 1 GM TAB PO SCH ×2 (09:43→17:45)
[2021-05-25] MEDS: MUPIROCIN 2% OINT 22 GM TUBE TOP SCH (09:46)
[2021-05-25] MEDS: BETAMETHASONE/CLOTRIMAZOLE CR 15 GM TUBE TOP SCH ×2 (09:46→17:45)
[2021-05-25] MEDS: INSULIN GLARGINE 100 UNITS/ML VIAL SQ SCH ×3 (09:48→21:00)
[2021-05-25] MEDS ORDERED: SODIUM CHLORIDE 0.9% 250ML 250 ML ONE (18:40)
[2021-05-26] MEDS: HYDROCODONE/APAP 10MG-325MG TAB PO PRN ×3 (01:35→16:57)
[2021-05-26 05:01] LABS: BASOPHILS % 0.4 % (0.0-1.0); EOSINOPHILS # (AUTO) 0.3 (0.0-0.4); EOSINOPHILS % 3.3 % (0.0-6.0); HEMATOCRIT 29.5 % (34.2-44.1); HEMOGLOBIN 9.2 g/dL (12.0-16.0); LYMPHOCYTES # (AUTO) 3.2 (1.0-3.2); LYMPHOCYTES % 34.6 % (18.0-39.1); MEAN CORPUSCULAR HEMOGLOBIN 28.4 pg (28-32); MEAN CORPUSCULAR HGB CONC 31.2 g/dL (31-35); MONOCYTES # (AUTO) 0.7 (0.2-0.8); MONOCYTES % 7.8 % (4.4-11.3); NEUTROPHILS # (AUTO) 4.9 (2.1-6.9); NEUTROPHILS % 53.5 % (38.7-80.0); PLATELET COUNT 332 x10e3/uL (140-360); RED BLOOD COUNT 3.24 x10e6/uL (3.6-5.1); RED CELL DISTRIBUTION WIDTH 14.8 % (11.7-14.4)
[2021-05-26] MEDS: LEVOTHYROXINE SODIUM 75 MCG TAB PO SCH (05:10)
[2021-05-26] MEDS: PREGABALIN 75 MG CAP PO SCH ×3 (05:10→17:12)
[2021-05-26] MEDS: PIPERACILLIN/TAZOBACTAM 3.375 GM in SODIUM CHLORIDE 0.9% 50ML 50 ML IV SCH (05:10)
[2021-05-26] MEDS: DICLOFENAC SOD 1% GEL 100 GM TUBE TP SCH ×4 (05:11→17:12)
[2021-05-26 05:26] LABS: ALBUMIN 2.5 g/dL (3.5-5.0); ALBUMIN/GLOBULIN RATIO 0.7 (0.8-2.0); ANION GAP 12.3 mmol/L (8-16); CREATININE, SERUM 0.61 mg/dL (0.57-1.11); MAGNESIUM 1.9 MG/DL (1.3-2.1); POTASSIUM 3.3 mmol/L (3.5-5.1)
[2021-05-26 05:38] VITALS: BP 125/77
[2021-05-26 07:03] LABS: EOSINOPHILS % (MANUAL) 4 % (0-7); LYMPHOCYTES % (MANUAL) 26 % (19-48); MONOCYTES % (MANUAL) 8 % (3.4-9.0); NEUTROPHILS % (MANUAL) 62 % (40-74)
[2021-05-26 07:08] LABS: PLATELET ESTIMATE ADEQUATE; PLATELET MORPHOLOGY COMMENT NORMAL
[2021-05-26 07:10] LABS: RBC MORPHOLOGY COMMENT NORMAL
[2021-05-26] MEDS: INSULIN REGULAR, HUMAN 100 UNIT/1 ML SQ SCH ×3 (07:30→16:56)
[2021-05-26] MEDS ORDERED: POTASSIUM CHLORIDE 20 MEQ TAB CR PO STA (08:17)
[2021-05-26 08:24] VITALS: BP 136/78
[2021-05-26 08:42] VITALS: BP 136/78
[2021-05-26] MEDS: CRANBERRY FRUIT 400 MG PO SCH ×2 (09:00→16:56)
[2021-05-26] MEDS: AMINO ACIDS PO SCH (09:00)
[2021-05-26] MEDS ORDERED: SPIRONOLACTONE 25 MG TAB PO SCH (09:00)
[2021-05-26] MEDS: PROTEIN HYDROLYS PO SCH (09:00)
[2021-05-26] MEDS: FLUTICASONE PROPIONATE NASAL SPRAY NS SCH (09:00)
[2021-05-26] MEDS ORDERED: POTASSIUM CHLORIDE 20 MEQ TAB CR PO ONE (09:15)
[2021-05-26] MEDS ORDERED: FUROSEMIDE INJ 10 MG/ML 4 ML VIAL IV ONE (09:15)
[2021-05-26] MEDS: ASPIRIN 81 MG CHEW TAB PO SCH (09:50)
[2021-05-26] MEDS: LOSARTAN POTASSIUM 25 MG TAB PO SCH (09:52)
[2021-05-26] MEDS: PANTOPRAZOLE SOD 40 MG TABEC PO SCH (09:53)
[2021-05-26] MEDS: OXYBUTYNIN CHLORIDE 5 MG TAB PO SCH ×2 (09:53→15:09)
[2021-05-26] MEDS: MULTIVITAMINS/MINERALS TAB PO SCH (09:53)
[2021-05-26] MEDS: ASCORBIC ACID 500 MG TAB PO SCH (09:53)
[2021-05-26] MEDS: SODIUM CHLORIDE 1 GM TAB PO SCH ×2 (09:53→16:56)
[2021-05-26] MEDS: METFORMIN HCL 500 MG TAB PO SCH (09:53)
[2021-05-26] MEDS: ZINC SULFATE 220 MG CAP PO SCH (09:53)
[2021-05-26] MEDS: MUPIROCIN 2% OINT 22 GM TUBE TOP SCH (09:53)
[2021-05-26] MEDS: LACTOBACILLUS ACIDOPHILUS CAPSULE PO SCH (09:53)
[2021-05-26] MEDS: BETAMETHASONE/CLOTRIMAZOLE CR 15 GM TUBE TOP SCH ×2 (09:54→16:56)
[2021-05-26] MEDS: LORATADINE 10 MG TAB PO SCH (09:57)
[2021-05-26] MEDS: CARVEDILOL 3.125 MG TAB PO SCH ×2 (10:10→16:56)
[2021-05-26] MEDS: INSULIN GLARGINE 100 UNITS/ML VIAL SQ SCH (10:11)
[2021-05-26 11:35] VITALS: BP 162/83
[2021-05-26 13:44] VITALS: BP 162/83
[2021-05-26] MEDS ORDERED: MEROPENEM 500 MG in SODIUM CHLORIDE 0.9% 50ML 50 ML IV SCH (14:00)
[2021-05-26 16:02] VITALS: BP 166/78
[2021-05-26] MEDS ORDERED: FUROSEMIDE 40 MG TAB PO SCH (18:00)
[2021-05-26 18:29] LABS: ANION GAP 14.9 mmol/L (8-16); CALCIUM 8.8 mg/dL (8.4-10.2); CREATININE, SERUM 0.76 mg/dL (0.57-1.11); POTASSIUM 3.9 mmol/L (3.5-5.1)
[2021-05-29] MEDS ORDERED: ERGOCALCIFEROL 50,000 UNIT CAP PO SCH (09:00)
== END 2021-05-26 21:30 | DRG 689 ==
LOC: ER 08:30 → ERHOLD 12:58 → MED/SURG2 18:23
PROC: 02HV33Z Insertion of Infusion Device into Superior Vena Cava, Percutaneous Approach (ICD-10-PCS; principal; 2021-05-26)
DX: N39.0 Urinary tract infection, site not specified (principal); L89.154 Pressure ulcer of sacral region, stage 4; G82.20 Paraplegia, unspecified; E87.1 Hypo-osmolality and hyponatremia; Z16.12 Extended spectrum beta lactamase (ESBL) resistance; R07.89 Other chest pain; E11.9 Type 2 diabetes mellitus without complications; E03.9 Hypothyroidism, unspecified; Z88.1 Allergy status to other antibiotic agents; Z88.2 Allergy status to sulfonamides; Z88.8 Allergy status to other drugs, medicaments and biological substances; E66.01 Morbid (severe) obesity due to excess calories; F41.9 Anxiety disorder, unspecified; G89.4 Chronic pain syndrome; Z68.37 Body mass index [BMI] 37.0-37.9, adult; E87.6 Hypokalemia; R07.81 Pleurodynia; Z79.4 Long term (current) use of insulin; I48.0 Paroxysmal atrial fibrillation; I11.0 Hypertensive heart disease with heart failure; I50.9 Heart failure, unspecified; E78.5 Hyperlipidemia, unspecified; B96.1 Klebsiella pneumoniae [K. pneumoniae] as the cause of diseases classified elsewhere
CPT/HCPCS: 36415; 71045; 80048; 80053; 80061; 81001; 82550; 82553; 82948; 83605; 83735; 83880; 84484; 85025; 87040; 87086; 87186; 93005; 93306; 94640; 96372; 99251; 99284; J1815; J1817; J1940; J2185; J2543; J3475; J7040; J7050; U0002

== ENCOUNTER 2022-02-27 15:34 | Inpatient (IN) | payer MEDICARE, OTHER ==
[~2022-02-27] VITALS: Ht 170.2 cm; Wt 93.4 kg
[2022-02-27] MEDS ORDERED: POTASSIUM CHLO10 ME1 PO (15:58)
[2022-02-27] MEDS ORDERED: LEVEMIR100 UNIT/1 SC (15:58)
[2022-02-27] MEDS ORDERED: LOVENOX80 MG/0.8 SC (15:58)
[2022-02-27] MEDS ORDERED: LACTULOSE20 GM/30 M PO (15:58)
[2022-02-27] MEDS ORDERED: MIRALAX17 GM PO (15:58)
[2022-02-27] MEDS ORDERED: NON-FORMULARY MEDICATION (Insulin Detemir (Levemir) 50 UNITS) SC SCH (16:00)
[2022-02-27] MEDS ORDERED: DEXTROSE 50% SYRINGE 50 ML IV PRN (16:00)
[2022-02-27 16:29] VITALS: BP 93/55
[2022-02-27 16:30] VITALS: BP 93/55
[2022-02-27] MEDS: HYDROMORPHONE 1MG/1ML INJ IV PRN ×3 (16:31→23:41)
[2022-02-27 16:48] VITALS: BP 93/55
[2022-02-27] MEDS: CARVEDILOL 3.125 MG TAB PO SCH (17:00)
[2022-02-27] MEDS: FUROSEMIDE 40 MG TAB PO SCH (17:22)
[2022-02-27] MEDS: ASCORBIC ACID 500 MG TAB PO SCH (17:22)
[2022-02-27] MEDS: PREGABALIN 75 MG CAP PO SCH ×2 (17:22→23:59)
[2022-02-27] MEDS: SODIUM CHLORIDE 1 GM TAB PO SCH (17:22)
[2022-02-27] MEDS: INSULIN REGULAR, HUMAN 100 UNIT/1 ML SQ SCH ×2 (17:25→21:00)
[2022-02-27] MEDS ORDERED: DIATRIZOATE MEGL/DIATRIZOA SOD 30 ML BTL PO ONE (18:50)
[2022-02-27] MEDS: ENOXAPARIN INJ 80 MG/0.8 ML SYR SC SCH (18:52)
[2022-02-27 20:00] VITALS: BP 93/55
[2022-02-27] MEDS: OXYBUTYNIN CHLORIDE 5 MG TAB PO SCH (21:00)
[2022-02-27] MEDS: INSULIN GLARGINE 100 UNITS/ML VIAL SQ SCH (21:00)
[2022-02-27] MEDS: LACTULOSE SYRUP 20 GM/30 ML UDC PO SCH (21:00)
[2022-02-27] MEDS: ONDANSETRON HCL INJ 2MG/ML 2ML 2 MG/ML VIAL IV PRN (23:42)
[2022-02-28] VITALS (7 sets, daily range): BP systolic 96–134; BP diastolic 48–91
[2022-02-28] MEDS: HYDROMORPHONE 1MG/1ML INJ IV PRN ×6 (03:01→22:28)
[2022-02-28] MEDS: ONDANSETRON HCL INJ 2MG/ML 2ML 2 MG/ML VIAL IV PRN ×3 (03:02→22:28)
[2022-02-28 04:56] LABS: BASOPHILS % 0.5 % (0.0-1.0); EOSINOPHILS # (AUTO) 0.2 (0.0-0.4); EOSINOPHILS % 3.2 % (0.0-6.0); HEMATOCRIT 35.5 % (34.2-44.1); LYMPHOCYTES # (AUTO) 2.3 (1.0-3.2); LYMPHOCYTES % 31.2 % (18.0-39.1); MEAN CORPUSCULAR HEMOGLOBIN 27.7 pg (28-32); MEAN CORPUSCULAR VOLUME 89.4 fL (81-99); MONOCYTES # (AUTO) 0.8 (0.2-0.8); MONOCYTES % 10.5 % (4.4-11.3); NEUTROPHILS % 54.2 % (38.7-80.0); PLATELET COUNT 247 x10e3/uL (140-360); RED BLOOD COUNT 3.97 x10e6/uL (3.6-5.1); RED CELL DISTRIBUTION WIDTH 15.9 % (11.7-14.4)
[2022-02-28 05:16] LABS: ALBUMIN 2.6 g/dL (3.5-5.0); ALBUMIN/GLOBULIN RATIO 0.7 (0.8-2.0); CALCIUM 8.2 mg/dL (8.4-10.2); CREATININE, SERUM 0.73 mg/dL (0.57-1.11)
[2022-02-28] MEDS: ENOXAPARIN INJ 80 MG/0.8 ML SYR SC SCH ×2 (06:00→17:48)
[2022-02-28] MEDS: LEVOTHYROXINE SODIUM 75 MCG TAB PO SCH (06:00)
[2022-02-28] MEDS: PREGABALIN 75 MG CAP PO SCH ×3 (06:00→17:48)
[2022-02-28] MEDS: INSULIN REGULAR, HUMAN 100 UNIT/1 ML SQ SCH ×4 (08:00→21:00)
[2022-02-28] MEDS: METFORMIN HCL 500 MG TAB PO SCH (08:49)
[2022-02-28] MEDS: POLYETHYLENE GLYCOL 3350 17 GM PACK PO SCH ×2 (09:00→09:45)
[2022-02-28] MEDS: POTASSIUM CHLORIDE 10MEQ EA PO SCH (09:45)
[2022-02-28] MEDS: LACTULOSE SYRUP 20 GM/30 ML UDC PO SCH ×3 (09:45→20:55)
[2022-02-28] MEDS: PANTOPRAZOLE SOD 40 MG TABEC PO SCH (09:45)
[2022-02-28] MEDS: ASPIRIN 81 MG CHEW TAB PO SCH (09:45)
[2022-02-28] MEDS: SODIUM CHLORIDE 1 GM TAB PO SCH ×2 (09:45→17:48)
[2022-02-28] MEDS: CARVEDILOL 3.125 MG TAB PO SCH ×2 (09:45→17:00)
[2022-02-28] MEDS: OXYBUTYNIN CHLORIDE 5 MG TAB PO SCH ×3 (09:45→20:54)
[2022-02-28] MEDS: SPIRONOLACTONE 25 MG TAB PO SCH (09:45)
[2022-02-28] MEDS: FLUTICASONE PROPIONATE NASAL SPRAY NS SCH (09:45)
[2022-02-28] MEDS: ASCORBIC ACID 500 MG TAB PO SCH ×2 (09:45→17:48)
[2022-02-28] MEDS: LORATADINE 10 MG TAB PO SCH (09:45)
[2022-02-28] MEDS: LOSARTAN POTASSIUM 25 MG TAB PO SCH (09:45)
[2022-02-28] MEDS: LACTOBACILLUS ACIDOPHILUS CAPSULE PO SCH (09:45)
[2022-02-28] MEDS: FUROSEMIDE 40 MG TAB PO SCH ×2 (09:45→17:48)
[2022-02-28] MEDS: INSULIN GLARGINE 100 UNITS/ML VIAL SQ SCH ×2 (09:50→21:00)
[2022-03-01] VITALS (8 sets, daily range): BP systolic 95–141; BP diastolic 47–95
[2022-03-01] MEDS: ONDANSETRON HCL INJ 2MG/ML 2ML 2 MG/ML VIAL IV PRN ×2 (01:50→05:24)
[2022-03-01] MEDS: HYDROMORPHONE 1MG/1ML INJ IV PRN ×5 (01:50→21:20)
[2022-03-01] MEDS: LEVOTHYROXINE SODIUM 75 MCG TAB PO SCH (05:10)
[2022-03-01] MEDS: ENOXAPARIN INJ 80 MG/0.8 ML SYR SC SCH ×2 (05:10→05:23)
[2022-03-01] MEDS: PREGABALIN 75 MG CAP PO SCH ×4 (05:10→21:51)
[2022-03-01] MEDS: INSULIN REGULAR, HUMAN 100 UNIT/1 ML SQ SCH ×5 (07:30→21:58)
[2022-03-01] MEDS: METFORMIN HCL 500 MG TAB PO SCH ×2 (08:00→08:30)
[2022-03-01] MEDS: SPIRONOLACTONE 25 MG TAB PO SCH (08:47)
[2022-03-01] MEDS: LORATADINE 10 MG TAB PO SCH (08:47)
[2022-03-01] MEDS: ASPIRIN 81 MG CHEW TAB PO SCH (08:47)
[2022-03-01] MEDS: FUROSEMIDE 40 MG TAB PO SCH ×2 (08:48→21:49)
[2022-03-01] MEDS: POTASSIUM CHLORIDE 10MEQ EA PO SCH (08:48)
[2022-03-01] MEDS: CARVEDILOL 3.125 MG TAB PO SCH ×2 (08:48→21:50)
[2022-03-01] MEDS: OXYBUTYNIN CHLORIDE 5 MG TAB PO SCH ×3 (08:48→21:51)
[2022-03-01] MEDS: LACTULOSE SYRUP 20 GM/30 ML UDC PO SCH ×3 (08:48→21:00)
[2022-03-01] MEDS: LOSARTAN POTASSIUM 25 MG TAB PO SCH (08:48)
[2022-03-01] MEDS: ASCORBIC ACID 500 MG TAB PO SCH ×2 (08:49→21:50)
[2022-03-01] MEDS: SODIUM CHLORIDE 1 GM TAB PO SCH ×2 (08:49→21:51)
[2022-03-01] MEDS: PANTOPRAZOLE SOD 40 MG TABEC PO SCH (08:49)
[2022-03-01] MEDS: POLYETHYLENE GLYCOL 3350 17 GM PACK PO SCH (08:49)
[2022-03-01] MEDS: LACTOBACILLUS ACIDOPHILUS CAPSULE PO SCH (08:49)
[2022-03-01] MEDS: INSULIN GLARGINE 100 UNITS/ML VIAL SQ SCH ×2 (08:49→21:58)
[2022-03-01] MEDS: FLUTICASONE PROPIONATE NASAL SPRAY NS SCH (08:50)
[2022-03-01] MEDS ORDERED: POTASSIUM CHLORIDE 20MEQ/100ML 100 ML IV ONE (11:00)
[2022-03-01] MEDS ORDERED: BUPIVACAINE HCL 0.25% 10ML MPF VIAL INJ ONE (11:08)
[2022-03-01] MEDS ORDERED: SEVOFLURANE INHAL SOLN 250 ML PEN BTL ONE (12:05)
[2022-03-01] MEDS ORDERED: LIDOCAINE HCL 2% LOCAL INJ 5 ML SDV VIAL INJ ONE (12:05)
[2022-03-01] MEDS ORDERED: ROCURONIUM BROMIDE 10 MG/ML 5ML VIAL IV ONE (12:05)
[2022-03-01] MEDS ORDERED: PHENYLEPHRINE HCL 1% 10 MG/ML VIAL ONE (12:05)
[2022-03-01] MEDS ORDERED: POVIDONE IODINE 0.05% 0.05 % ML PO ONE (12:05)
[2022-03-01] MEDS ORDERED: DEXAMETHASONE SOD PHOS INJ 4 MG/ML SDV ONE (12:05)
[2022-03-01] MEDS ORDERED: PROPOFOL IV EMULSION 10 MG/ML 20 ML VIAL ONE (12:05)
[2022-03-01] MEDS ORDERED: ONDANSETRON HCL INJ 2MG/ML 2ML 2 MG/ML VIAL ONE (12:05)
[2022-03-01] MEDS ORDERED: KETAMINE HCL INJ 50 MG/ML 10 ML VIAL ONE (12:46)
[2022-03-01] MEDS ORDERED: MIDAZOLAM HCL 2 MG/2 ML VIAL ONE (12:46)
[2022-03-01] MEDS ORDERED: SUGAMMADEX SODIUM 200 MG/2 ML VIAL IV ONE (13:23)
[2022-03-01] MEDS ORDERED: ACETAMINOPHEN 1000 MG/100 ML 100 ML IV ONE (13:23)
[2022-03-01] MEDS ORDERED: HYDROCODONE/APAP 7.5MG-325MG 1 EA TAB PO PRN (14:30)
[2022-03-01] MEDS: SODIUM CHLORIDE 0.9% 1000ML 1,000 ML IV SCH (14:30)
[2022-03-01] MEDS ORDERED: ALBUTEROL/IPRATROPIUM 3 ML NEB NEB STA (14:39)
[2022-03-01] MEDS ORDERED: FUROSEMIDE INJ 10 MG/ML 4 ML VIAL IV STA (14:39)
[2022-03-01] MEDS ORDERED: ALBUTEROL/IPRATROPIUM 3 ML NEB NEB PRN (14:45)
[2022-03-01] MEDS: HYDROMORPHONE 2MG/ML 2 MG/ML ML ONE ×3 (14:49→16:30)
[2022-03-02] VITALS (8 sets, daily range): BP systolic 91–149; BP diastolic 50–89
[2022-03-02] MEDS: PREGABALIN 75 MG CAP PO SCH ×5 (00:02→23:43)
[2022-03-02] MEDS: SODIUM CHLORIDE 0.9% 1000ML 1,000 ML IV SCH ×3 (00:30→19:45)
[2022-03-02] MEDS: HYDROMORPHONE 1MG/1ML INJ IV PRN ×8 (02:03→22:35)
[2022-03-02] MEDS: LEVOTHYROXINE SODIUM 75 MCG TAB PO SCH (05:09)
[2022-03-02] MEDS: ONDANSETRON HCL INJ 2MG/ML 2ML 2 MG/ML VIAL IV PRN (07:22)
[2022-03-02] MEDS: POLYETHYLENE GLYCOL 3350 17 GM PACK PO SCH (08:19)
[2022-03-02] MEDS: LACTULOSE SYRUP 20 GM/30 ML UDC PO SCH ×3 (08:19→21:00)
[2022-03-02] MEDS: SPIRONOLACTONE 25 MG TAB PO SCH (08:20)
[2022-03-02] MEDS: FUROSEMIDE 40 MG TAB PO SCH ×2 (08:21→19:37)
[2022-03-02] MEDS: PANTOPRAZOLE SOD 40 MG TABEC PO SCH (08:22)
[2022-03-02] MEDS: LORATADINE 10 MG TAB PO SCH (08:22)
[2022-03-02] MEDS: CARVEDILOL 3.125 MG TAB PO SCH ×2 (08:22→20:01)
[2022-03-02] MEDS: LACTOBACILLUS ACIDOPHILUS CAPSULE PO SCH (08:22)
[2022-03-02] MEDS: POTASSIUM CHLORIDE 10MEQ EA PO SCH (08:23)
[2022-03-02] MEDS: ASPIRIN 81 MG CHEW TAB PO SCH (08:23)
[2022-03-02] MEDS: ASCORBIC ACID 500 MG TAB PO SCH ×2 (08:23→19:37)
[2022-03-02] MEDS: OXYBUTYNIN CHLORIDE 5 MG TAB PO SCH ×3 (08:23→19:37)
[2022-03-02] MEDS: LOSARTAN POTASSIUM 25 MG TAB PO SCH (08:23)
[2022-03-02] MEDS: METFORMIN HCL 500 MG TAB PO SCH (08:23)
[2022-03-02] MEDS: SODIUM CHLORIDE 1 GM TAB PO SCH ×2 (08:23→19:37)
[2022-03-02] MEDS: INSULIN REGULAR, HUMAN 100 UNIT/1 ML SQ SCH ×4 (08:29→20:52)
[2022-03-02] MEDS: INSULIN GLARGINE 100 UNITS/ML VIAL SQ SCH ×2 (08:30→20:53)
[2022-03-02] MEDS: FLUTICASONE PROPIONATE NASAL SPRAY NS SCH (08:30)
[2022-03-02 14:43] LABS: BASOPHILS % 0.3 % (0.0-1.0); EOSINOPHILS % 0.4 % (0.0-6.0); HEMOGLOBIN 10.6 g/dL (12.0-16.0); LYMPHOCYTES # (AUTO) 2.5 (1.0-3.2); LYMPHOCYTES % 26.4 % (18.0-39.1); MEAN CORPUSCULAR HGB CONC 30.3 g/dL (31-35); MEAN CORPUSCULAR VOLUME 92.3 fL (81-99); NEUTROPHILS % 62.8 % (38.7-80.0); PLATELET COUNT 262 x10e3/uL (140-360); RED BLOOD COUNT 3.79 x10e6/uL (3.6-5.1); RED CELL DISTRIBUTION WIDTH 16.3 % (11.7-14.4)
[2022-03-02 14:59] LABS: ANION GAP 14.7 mmol/L (8-16); CALCIUM 7.9 mg/dL (8.4-10.2); CREATININE, SERUM 0.69 mg/dL (0.57-1.11); POTASSIUM 3.7 mmol/L (3.5-5.1)
[2022-03-03] VITALS: BP 106/52
[2022-03-03] MEDS: HYDROMORPHONE 1MG/1ML INJ IV PRN ×6 (01:38→18:04)
[2022-03-03 04:00] VITALS: BP 97/56
[2022-03-03] MEDS: LEVOTHYROXINE SODIUM 75 MCG TAB PO SCH (05:08)
[2022-03-03] MEDS: PREGABALIN 75 MG CAP PO SCH ×3 (05:08→17:44)
[2022-03-03 05:16] LABS: BASOPHILS % 0.4 % (0.0-1.0); EOSINOPHILS # (AUTO) 0.1 (0.0-0.4); EOSINOPHILS % 0.6 % (0.0-6.0); HEMATOCRIT 36.1 % (34.2-44.1); LYMPHOCYTES # (AUTO) 1.7 (1.0-3.2); LYMPHOCYTES % 16.8 % (18.0-39.1); MEAN CORPUSCULAR HEMOGLOBIN 27.7 pg (28-32); MEAN CORPUSCULAR HGB CONC 30.5 g/dL (31-35); MEAN CORPUSCULAR VOLUME 90.9 fL (81-99); MONOCYTES # (AUTO) 1.1 (0.2-0.8); MONOCYTES % 10.5 % (4.4-11.3); NEUTROPHILS # (AUTO) 7.4 (2.1-6.9); NEUTROPHILS % 71.3 % (38.7-80.0); PLATELET COUNT 256 x10e3/uL (140-360); RED BLOOD COUNT 3.97 x10e6/uL (3.6-5.1); RED CELL DISTRIBUTION WIDTH 16.2 % (11.7-14.4)
[2022-03-03 05:33] LABS: ANION GAP 14.1 mmol/L (8-16); CALCIUM 7.9 mg/dL (8.4-10.2); CREATININE, SERUM 0.59 mg/dL (0.57-1.11); POTASSIUM 3.1 mmol/L (3.5-5.1)
[2022-03-03] MEDS: SODIUM CHLORIDE 0.9% 1000ML 1,000 ML IV SCH (07:20)
[2022-03-03] MEDS: INSULIN REGULAR, HUMAN 100 UNIT/1 ML SQ SCH ×3 (07:30→16:30)
[2022-03-03] MEDS: ONDANSETRON HCL INJ 2MG/ML 2ML 2 MG/ML VIAL IV PRN ×3 (07:44→13:55)
[2022-03-03 08:29] VITALS: BP 126/59
[2022-03-03] MEDS: POLYETHYLENE GLYCOL 3350 17 GM PACK PO SCH (09:00)
[2022-03-03] MEDS: LACTULOSE SYRUP 20 GM/30 ML UDC PO SCH ×2 (09:00→15:00)
[2022-03-03] MEDS: FLUTICASONE PROPIONATE NASAL SPRAY NS SCH (09:01)
[2022-03-03] MEDS: METFORMIN HCL 500 MG TAB PO SCH (09:01)
[2022-03-03] MEDS: SPIRONOLACTONE 25 MG TAB PO SCH (09:02)
[2022-03-03] MEDS: LORATADINE 10 MG TAB PO SCH (09:02)
[2022-03-03] MEDS: ASPIRIN 81 MG CHEW TAB PO SCH (09:02)
[2022-03-03] MEDS: CARVEDILOL 3.125 MG TAB PO SCH (09:04)
[2022-03-03] MEDS: LOSARTAN POTASSIUM 25 MG TAB PO SCH (09:05)
[2022-03-03] MEDS: POTASSIUM CHLORIDE 10MEQ EA PO SCH (09:06)
[2022-03-03] MEDS: OXYBUTYNIN CHLORIDE 5 MG TAB PO SCH ×2 (09:06→15:30)
[2022-03-03] MEDS: PANTOPRAZOLE SOD 40 MG TABEC PO SCH (09:07)
[2022-03-03] MEDS: FUROSEMIDE 40 MG TAB PO SCH (09:07)
[2022-03-03] MEDS: LACTOBACILLUS ACIDOPHILUS CAPSULE PO SCH (09:07)
[2022-03-03] MEDS: SODIUM CHLORIDE 1 GM TAB PO SCH (09:08)
[2022-03-03] MEDS: ASCORBIC ACID 500 MG TAB PO SCH (09:08)
[2022-03-03] MEDS: INSULIN GLARGINE 100 UNITS/ML VIAL SQ SCH (09:09)
[2022-03-03 09:41] VITALS: BP 126/59
[2022-03-03] MEDS ORDERED: POTASSIUM CHLORIDE 20 MEQ TAB CR PO ONE (12:00)
[2022-03-03 13:00] VITALS: BP 126/74
[2022-03-03] MEDS ORDERED: FENTANYL 50 MCG/HR PATCH TOP SCH (13:00)
[2022-03-03 16:15] VITALS: BP 100/52
== END 2022-03-03 18:58 | DRG 329 ==
LOC: MED/SURG 15:35
PROC: 02HV33Z Insertion of Infusion Device into Superior Vena Cava, Percutaneous Approach (ICD-10-PCS; 2022-02-27)
PROC: 0D1N474 Bypass Sigmoid Colon to Cutaneous with Autologous Tissue Substitute, Percutaneous Endoscopic Approach (ICD-10-PCS; principal; 2022-03-01 12:21)
DX: K57.32 Diverticulitis of large intestine without perforation or abscess without bleeding (principal); L89.154 Pressure ulcer of sacral region, stage 4; N32.1 Vesicointestinal fistula; G82.20 Paraplegia, unspecified; N39.0 Urinary tract infection, site not specified; I48.91 Unspecified atrial fibrillation; Z79.01 Long term (current) use of anticoagulants; D64.9 Anemia, unspecified; E66.9 Obesity, unspecified; Z68.32 Body mass index [BMI] 32.0-32.9, adult; E11.9 Type 2 diabetes mellitus without complications; N31.2 Flaccid neuropathic bladder, not elsewhere classified; E87.6 Hypokalemia; I11.0 Hypertensive heart disease with heart failure; I50.9 Heart failure, unspecified; Z74.01 Bed confinement status; Z88.1 Allergy status to other antibiotic agents; Z88.2 Allergy status to sulfonamides; Z88.8 Allergy status to other drugs, medicaments and biological substances; Z20.822 Contact with and (suspected) exposure to COVID-19
CPT/HCPCS: 36415; 36568; 74176; 80048; 80053; 82948; 85025; 87086; 87186; 96372; 99251; C1713; J0694; J0696; J1100; J1170; J1650; J1815; J1817; J2001; J2250; J2370; J2405; J3480; J7030

== ENCOUNTER 2022-03-11 16:24 | Inpatient (IN) | payer MEDICARE, OTHER ==
[~2022-03-11] VITALS: Ht 170.2 cm; Wt 91.2 kg
[~2022-03-11 16:24] MED LIST changes: +LACTULOSE20 GM/30 M PO; +LEVEMIR100 UNIT/1 SC; +LOVENOX80 MG/0.8 SC; +MIRALAX17 GM PO; +POTASSIUM CHLO10 ME1 PO
[2022-03-11] MEDS ORDERED: Morphine 4mg INJECTION 4 MG/ML INJ IV PRN (17:30)
[2022-03-11 17:45] VITALS: BP 125/57
[2022-03-11] MEDS ORDERED: ACETAMINOPHEN 325 MG TAB PO PRN (17:45)
[2022-03-11] MEDS: SODIUM CHLORIDE 0.9% 1000ML 1,000 ML IV SCH (17:50)
[2022-03-11 18:08] LABS: BASOPHILS # (AUTO) 0.1 (0.0-0.1); BASOPHILS % 0.6 % (0.0-1.0); EOSINOPHILS # (AUTO) 0.1 (0.0-0.4); EOSINOPHILS % 1.5 % (0.0-6.0); HEMATOCRIT 35.3 % (34.2-44.1); LYMPHOCYTES # (AUTO) 2.2 (1.0-3.2); LYMPHOCYTES % 23.6 % (18.0-39.1); MEAN CORPUSCULAR HEMOGLOBIN 28.1 pg (28-32); MEAN CORPUSCULAR HGB CONC 31.2 g/dL (31-35); MEAN CORPUSCULAR VOLUME 90.3 fL (81-99); MONOCYTES % 10.9 % (4.4-11.3); NEUTROPHILS # (AUTO) 5.7 (2.1-6.9); NEUTROPHILS % 62.1 % (38.7-80.0); PLATELET COUNT 276 x10e3/uL (140-360); RED BLOOD COUNT 3.91 x10e6/uL (3.6-5.1); RED CELL DISTRIBUTION WIDTH 15.6 % (11.7-14.4)
[2022-03-11 18:22] LABS: ALBUMIN 2.6 g/dL (3.5-5.0); ALBUMIN/GLOBULIN RATIO 0.7 (0.8-2.0); ANION GAP 16.1 mmol/L (8-16); CREATININE, SERUM 0.75 mg/dL (0.57-1.11); POTASSIUM 4.1 mmol/L (3.5-5.1)
[2022-03-11 18:29] VITALS: BP 125/57
[2022-03-11 20:00] VITALS: BP 116/91
[2022-03-11] MEDS: ONDANSETRON HCL INJ 2MG/ML 2ML 2 MG/ML VIAL IV PRN (21:52)
[2022-03-11] MEDS: HYDROMORPHONE 1MG/1ML INJ IV PRN (21:52)
[2022-03-11] MEDS ORDERED: DIATRIZOATE MEGL/DIATRIZOA SOD 30 ML BTL PO ONE (22:42)
[2022-03-12] VITALS: BP 134/61
[2022-03-12] MEDS: SODIUM CHLORIDE 0.9% 1000ML 1,000 ML IV SCH ×2 (00:38→09:36)
[2022-03-12] MEDS: ONDANSETRON HCL INJ 2MG/ML 2ML 2 MG/ML VIAL IV PRN ×5 (01:44→23:15)
[2022-03-12] MEDS: HYDROMORPHONE 1MG/1ML INJ IV PRN ×6 (01:45→23:15)
[2022-03-12 07:37] LABS: BASOPHILS % 0.5 % (0.0-1.0); EOSINOPHILS # (AUTO) 0.2 (0.0-0.4); EOSINOPHILS % 2.4 % (0.0-6.0); HEMATOCRIT 34.8 % (34.2-44.1); HEMOGLOBIN 10.6 g/dL (12.0-16.0); LYMPHOCYTES # (AUTO) 1.6 (1.0-3.2); LYMPHOCYTES % 19.2 % (18.0-39.1); MEAN CORPUSCULAR HEMOGLOBIN 27.7 pg (28-32); MEAN CORPUSCULAR HGB CONC 30.5 g/dL (31-35); MEAN CORPUSCULAR VOLUME 91.1 fL (81-99); MONOCYTES # (AUTO) 0.9 (0.2-0.8); MONOCYTES % 10.8 % (4.4-11.3); NEUTROPHILS # (AUTO) 5.5 (2.1-6.9); NEUTROPHILS % 66.6 % (38.7-80.0); PLATELET COUNT 286 x10e3/uL (140-360); RED BLOOD COUNT 3.82 x10e6/uL (3.6-5.1); RED CELL DISTRIBUTION WIDTH 15.6 % (11.7-14.4)
[2022-03-12 07:57] LABS: ALBUMIN 2.5 g/dL (3.5-5.0); ALBUMIN/GLOBULIN RATIO 0.7 (0.8-2.0); ANION GAP 12.5 mmol/L (8-16); CALCIUM 8.2 mg/dL (8.4-10.2); CREATININE, SERUM 0.63 mg/dL (0.57-1.11); POTASSIUM 3.5 mmol/L (3.5-5.1)
[2022-03-12 08:00] VITALS: BP 122/58
[2022-03-12 08:03] VITALS: BP 122/58
[2022-03-12] MEDS ORDERED: PIPERACILLIN/TAZOBACTAM 3.375 GM VIAL ONE (09:10)
[2022-03-12] MEDS: SENNOSIDES 8.6 MG TAB PO SCH (09:36)
[2022-03-12] MEDS: DOCUSATE SODIUM 100 MG CAP PO SCH (09:36)
[2022-03-12] MEDS ORDERED: MAGNESIUM SULFATE 2GM/50ML 50 ML IV ONE (11:00)
[2022-03-12 11:57] VITALS: BP 136/63
[2022-03-12] MEDS ORDERED: ALPRAZOLAM0.5 M1 PO (12:17)
[2022-03-12] MEDS ORDERED: DEXTROSE 50% SYRINGE 50 ML IV PRN (12:30)
[2022-03-12] MEDS ORDERED: MAGNESIUM HYDROXIDE 30 ML UDC PO NR (14:00)
[2022-03-12] MEDS: OXYBUTYNIN CHLORIDE 5 MG TAB PO SCH ×2 (15:00→19:50)
[2022-03-12] MEDS: LACTULOSE SYRUP 20 GM/30 ML UDC PO SCH ×2 (15:00→19:50)
[2022-03-12 15:48] VITALS: BP 137/71
[2022-03-12] MEDS: INSULIN LISPRO 100 UNIT/1 ML 3ML VIAL SQ SCH ×2 (16:30→21:00)
[2022-03-12] MEDS: DICLOFENAC SOD 1% GEL 100 GM TUBE TP SCH (17:00)
[2022-03-12] MEDS: CARVEDILOL 3.125 MG TAB PO SCH (17:00)
[2022-03-12] MEDS: ENOXAPARIN SOD INJ 40 MG/0.4 ML SYR SC SCH (17:00)
[2022-03-12] MEDS: PREGABALIN 75 MG CAP PO SCH ×2 (18:00→23:14)
[2022-03-12] MEDS: FUROSEMIDE 40 MG TAB PO SCH (18:04)
[2022-03-12] MEDS: SODIUM CHLORIDE 1 GM TAB PO SCH (18:05)
[2022-03-12] MEDS: ASCORBIC ACID 500 MG TAB PO SCH (18:05)
[2022-03-12] MEDS: ERYTHROMYCIN 250 MG TAB PO SCH ×2 (18:45→23:12)
[2022-03-12] MEDS: NEOMYCIN SULFATE 500 MG TAB PO SCH ×2 (18:45→23:13)
[2022-03-12] MEDS ORDERED: ERYTHROMYCIN 500 MG TAB PO SCH (19:00)
[2022-03-12 20:00] VITALS: BP 155/73
[2022-03-12] MEDS: INSULIN GLARGINE 100 UNITS/ML VIAL SQ SCH (21:00)
[2022-03-13] VITALS (7 sets, daily range): BP systolic 108–172; BP diastolic 68–76
[2022-03-13] MEDS: HYDROMORPHONE 1MG/1ML INJ IV PRN ×7 (04:21→23:20)
[2022-03-13] MEDS: ONDANSETRON HCL INJ 2MG/ML 2ML 2 MG/ML VIAL IV PRN ×4 (04:21→23:20)
[2022-03-13] MEDS: PREGABALIN 75 MG CAP PO SCH ×4 (05:25→23:48)
[2022-03-13] MEDS: LEVOTHYROXINE SODIUM 75 MCG TAB PO SCH (05:25)
[2022-03-13 05:59] LABS: ALBUMIN 2.4 g/dL (3.5-5.0); ALBUMIN/GLOBULIN RATIO 0.7 (0.8-2.0); ANION GAP 13.2 mmol/L (8-16); CALCIUM 7.7 mg/dL (8.4-10.2); CREATININE, SERUM 0.66 mg/dL (0.57-1.11); MAGNESIUM 1.8 MG/DL (1.3-2.1); POTASSIUM 3.2 mmol/L (3.5-5.1)
[2022-03-13 06:24] LABS: FERRITIN 76.63 ng/mL (4.63-204.00); THYROID STIMULATING HORMONE 1.173 uIU/mL (0.350-4.940)
[2022-03-13 06:57] LABS: BASOPHILS # (AUTO) 0.1 (0.0-0.1); BASOPHILS % 0.6 % (0.0-1.0); EOSINOPHILS # (AUTO) 0.2 (0.0-0.4); EOSINOPHILS % 2.3 % (0.0-6.0); HEMOGLOBIN 11.8 g/dL (12.0-16.0); LYMPHOCYTES # (AUTO) 1.9 (1.0-3.2); LYMPHOCYTES % 23.6 % (18.0-39.1); MEAN CORPUSCULAR HEMOGLOBIN 27.8 pg (28-32); MEAN CORPUSCULAR HGB CONC 30.3 g/dL (31-35); MONOCYTES # (AUTO) 0.8 (0.2-0.8); MONOCYTES % 9.8 % (4.4-11.3); NEUTROPHILS # (AUTO) 5.1 (2.1-6.9); NEUTROPHILS % 63.2 % (38.7-80.0); PLATELET COUNT 290 x10e3/uL (140-360); RED BLOOD COUNT 4.24 x10e6/uL (3.6-5.1); RED CELL DISTRIBUTION WIDTH 15.3 % (11.7-14.4)
[2022-03-13] MEDS: INSULIN LISPRO 100 UNIT/1 ML 3ML VIAL SQ SCH ×4 (07:30→22:07)
[2022-03-13] MEDS: PANTOPRAZOLE SOD 40 MG TABEC PO SCH (09:00)
[2022-03-13] MEDS: OXYBUTYNIN CHLORIDE 5 MG TAB PO SCH ×4 (09:00→20:07)
[2022-03-13] MEDS: SODIUM CHLORIDE 1 GM TAB PO SCH ×2 (09:00→17:00)
[2022-03-13] MEDS: LACTULOSE SYRUP 20 GM/30 ML UDC PO SCH ×3 (09:00→20:07)
[2022-03-13] MEDS: ASPIRIN 81 MG CHEW TAB PO SCH (09:00)
[2022-03-13] MEDS: ASCORBIC ACID 500 MG TAB PO SCH ×2 (09:00→17:00)
[2022-03-13] MEDS: CARVEDILOL 3.125 MG TAB PO SCH ×2 (09:00→17:00)
[2022-03-13] MEDS: SPIRONOLACTONE 25 MG TAB PO SCH (09:00)
[2022-03-13] MEDS: POLYETHYLENE GLYCOL 3350 17 GM PACK PO SCH (09:00)
[2022-03-13] MEDS: LOSARTAN POTASSIUM 25 MG TAB PO SCH (09:00)
[2022-03-13] MEDS: LACTOBACILLUS ACIDOPHILUS CAPSULE PO SCH (09:00)
[2022-03-13] MEDS: SENNOSIDES 8.6 MG TAB PO SCH (09:00)
[2022-03-13] MEDS: DOCUSATE SODIUM 100 MG CAP PO SCH (09:00)
[2022-03-13] MEDS: INSULIN GLARGINE 100 UNITS/ML VIAL SQ SCH ×2 (09:00→22:06)
[2022-03-13] MEDS: FLUTICASONE PROPIONATE NASAL SPRAY NS SCH (09:00)
[2022-03-13] MEDS: POTASSIUM CHLORIDE 10MEQ EA PO SCH (09:00)
[2022-03-13] MEDS: FUROSEMIDE 40 MG TAB PO SCH ×2 (09:00→17:00)
[2022-03-13] MEDS: METFORMIN HCL 500 MG TAB PO SCH (09:00)
[2022-03-13] MEDS ORDERED: POTASSIUM CHLORIDE 20MEQ/100ML 100 ML IV ONE (10:00)
[2022-03-13] MEDS: ENOXAPARIN SOD INJ 40 MG/0.4 ML SYR SC SCH (17:00)
[2022-03-13] MEDS: SODIUM CHLORIDE 0.9% 1000ML 1,000 ML IV SCH ×2 (17:13→23:49)
[2022-03-14] VITALS (8 sets, daily range): BP systolic 108–160; BP diastolic 60–86
[2022-03-14] MEDS: HYDROMORPHONE 1MG/1ML INJ IV PRN ×6 (02:44→22:00)
[2022-03-14] MEDS: PREGABALIN 75 MG CAP PO SCH ×4 (05:45→16:41)
[2022-03-14] MEDS: LEVOTHYROXINE SODIUM 75 MCG TAB PO SCH (05:45)
[2022-03-14] MEDS: POLYETHYLENE GLYCOL 3350 17 GM PACK PO SCH (09:00)
[2022-03-14] MEDS: LACTULOSE SYRUP 20 GM/30 ML UDC PO SCH ×2 (09:00→15:00)
[2022-03-14] MEDS: LOSARTAN POTASSIUM 25 MG TAB PO SCH (09:15)
[2022-03-14] MEDS: FUROSEMIDE 40 MG TAB PO SCH ×2 (09:15→15:52)
[2022-03-14] MEDS: SODIUM CHLORIDE 1 GM TAB PO SCH ×2 (09:15→15:52)
[2022-03-14] MEDS: OXYBUTYNIN CHLORIDE 5 MG TAB PO SCH ×4 (09:15→21:30)
[2022-03-14] MEDS: LACTOBACILLUS ACIDOPHILUS CAPSULE PO SCH (09:15)
[2022-03-14] MEDS: METFORMIN HCL 500 MG TAB PO SCH (09:16)
[2022-03-14] MEDS: PANTOPRAZOLE SOD 40 MG TABEC PO SCH (09:16)
[2022-03-14] MEDS: SENNOSIDES 8.6 MG TAB PO SCH (09:16)
[2022-03-14] MEDS: ASCORBIC ACID 500 MG TAB PO SCH ×2 (09:17→15:52)
[2022-03-14] MEDS: ASPIRIN 81 MG CHEW TAB PO SCH (09:17)
[2022-03-14] MEDS: SPIRONOLACTONE 25 MG TAB PO SCH (09:17)
[2022-03-14] MEDS: CARVEDILOL 3.125 MG TAB PO SCH ×2 (09:18→16:41)
[2022-03-14] MEDS: ONDANSETRON HCL INJ 2MG/ML 2ML 2 MG/ML VIAL IV PRN ×5 (09:18→22:00)
[2022-03-14] MEDS: DOCUSATE SODIUM 100 MG CAP PO SCH (09:21)
[2022-03-14] MEDS: FLUTICASONE PROPIONATE NASAL SPRAY NS SCH (09:24)
[2022-03-14] MEDS: INSULIN GLARGINE 100 UNITS/ML VIAL SQ SCH ×2 (09:42→21:30)
[2022-03-14] MEDS: INSULIN LISPRO 100 UNIT/1 ML 3ML VIAL SQ SCH ×4 (09:43→21:30)
[2022-03-14] MEDS: POTASSIUM CHLORIDE 10MEQ EA PO SCH (11:15)
[2022-03-14] MEDS: SODIUM CHLORIDE 0.9% 1000ML 1,000 ML IV SCH (12:17)
[2022-03-14] MEDS: ENOXAPARIN SOD INJ 40 MG/0.4 ML SYR SC SCH (16:41)
[2022-03-15] VITALS (9 sets, daily range): BP systolic 105–158; BP diastolic 66–110
[2022-03-15] MEDS: PREGABALIN 75 MG CAP PO SCH ×4 (00:30→18:00)
[2022-03-15] MEDS: HYDROMORPHONE 1MG/1ML INJ IV PRN ×7 (01:00→21:10)
[2022-03-15] MEDS: SODIUM CHLORIDE 0.9% 1000ML 1,000 ML IV SCH ×2 (01:25→14:50)
[2022-03-15] MEDS: LEVOTHYROXINE SODIUM 75 MCG TAB PO SCH (05:43)
[2022-03-15 06:26] LABS: BASOPHILS % 0.6 % (0.0-1.0); EOSINOPHILS # (AUTO) 0.2 (0.0-0.4); EOSINOPHILS % 3.2 % (0.0-6.0); HEMOGLOBIN 10.9 g/dL (12.0-16.0); LYMPHOCYTES # (AUTO) 2.1 (1.0-3.2); MEAN CORPUSCULAR HEMOGLOBIN 27.3 pg (28-32); MEAN CORPUSCULAR HGB CONC 30.3 g/dL (31-35); MEAN CORPUSCULAR VOLUME 90.2 fL (81-99); MONOCYTES # (AUTO) 0.7 (0.2-0.8); MONOCYTES % 10.5 % (4.4-11.3); NEUTROPHILS # (AUTO) 3.5 (2.1-6.9); NEUTROPHILS % 53.4 % (38.7-80.0); PLATELET COUNT 283 x10e3/uL (140-360); RED BLOOD COUNT 3.99 x10e6/uL (3.6-5.1); RED CELL DISTRIBUTION WIDTH 15.4 % (11.7-14.4)
[2022-03-15 07:09] LABS: ANION GAP 15.6 mmol/L (8-16); CALCIUM 8.1 mg/dL (8.4-10.2); CREATININE, SERUM 0.65 mg/dL (0.57-1.11); POTASSIUM 3.6 mmol/L (3.5-5.1)
[2022-03-15] MEDS: INSULIN LISPRO 100 UNIT/1 ML 3ML VIAL SQ SCH ×4 (07:30→21:00)
[2022-03-15] MEDS: FLUTICASONE PROPIONATE NASAL SPRAY NS SCH (08:23)
[2022-03-15] MEDS: POTASSIUM CHLORIDE 10MEQ EA PO SCH (09:00)
[2022-03-15] MEDS: SPIRONOLACTONE 25 MG TAB PO SCH (09:00)
[2022-03-15] MEDS: DOCUSATE SODIUM 100 MG CAP PO SCH (09:00)
[2022-03-15] MEDS: FUROSEMIDE 40 MG TAB PO SCH ×2 (09:00→17:00)
[2022-03-15] MEDS: SENNOSIDES 8.6 MG TAB PO SCH (09:00)
[2022-03-15] MEDS: PANTOPRAZOLE SOD 40 MG TABEC PO SCH (09:00)
[2022-03-15] MEDS: ASPIRIN 81 MG CHEW TAB PO SCH (09:00)
[2022-03-15] MEDS: METFORMIN HCL 500 MG TAB PO SCH (09:00)
[2022-03-15] MEDS: ASCORBIC ACID 500 MG TAB PO SCH ×2 (09:00→17:00)
[2022-03-15] MEDS: SODIUM CHLORIDE 1 GM TAB PO SCH ×2 (09:00→17:00)
[2022-03-15] MEDS: LACTOBACILLUS ACIDOPHILUS CAPSULE PO SCH (09:00)
[2022-03-15] MEDS: LOSARTAN POTASSIUM 25 MG TAB PO SCH (09:00)
[2022-03-15] MEDS: INSULIN GLARGINE 100 UNITS/ML VIAL SQ SCH ×2 (09:00→21:30)
[2022-03-15] MEDS: CARVEDILOL 3.125 MG TAB PO SCH ×2 (09:00→17:00)
[2022-03-15] MEDS: COLLAGENASE 5 GM TUBE TOP SCH (09:00)
[2022-03-15] MEDS: OXYBUTYNIN CHLORIDE 5 MG TAB PO SCH ×4 (09:00→21:09)
[2022-03-15] MEDS ORDERED: MIDAZOLAM HCL 2 MG/2 ML VIAL ONE (13:40)
[2022-03-15] MEDS ORDERED: ONDANSETRON HCL INJ 2MG/ML 2ML 2 MG/ML VIAL IV PRN (20:15)
[2022-03-15] MEDS ORDERED: HYDROCODONE/APAP 7.5MG-325MG 1 EA TAB PO PRN (20:15)
[2022-03-15] MEDS: ONDANSETRON HCL INJ 2MG/ML 2ML 2 MG/ML VIAL IV PRN (21:10)
[2022-03-16] MEDS: PREGABALIN 75 MG CAP PO SCH ×5 (00:15→23:36)
[2022-03-16] MEDS: HYDROMORPHONE 1MG/1ML INJ IV PRN ×8 (00:30→22:49)
[2022-03-16] MEDS: SODIUM CHLORIDE 0.9% 1000ML 1,000 ML IV SCH ×3 (03:55→23:32)
[2022-03-16 04:29] VITALS: BP 147/83
[2022-03-16] MEDS: LEVOTHYROXINE SODIUM 75 MCG TAB PO SCH (06:15)
[2022-03-16 06:17] LABS: BASOPHILS % 0.2 % (0.0-1.0); HEMATOCRIT 35.8 % (34.2-44.1); HEMOGLOBIN 11.6 g/dL (12.0-16.0); LYMPHOCYTES # (AUTO) 1.4 (1.0-3.2); LYMPHOCYTES % 16.5 % (18.0-39.1); MEAN CORPUSCULAR HEMOGLOBIN 27.6 pg (28-32); MEAN CORPUSCULAR HGB CONC 32.4 g/dL (31-35); MEAN CORPUSCULAR VOLUME 85.2 fL (81-99); MONOCYTES # (AUTO) 0.3 (0.2-0.8); MONOCYTES % 3.7 % (4.4-11.3); NEUTROPHILS # (AUTO) 6.7 (2.1-6.9); NEUTROPHILS % 79.2 % (38.7-80.0); PLATELET COUNT 290 x10e3/uL (140-360); RED CELL DISTRIBUTION WIDTH 15.2 % (11.7-14.4)
[2022-03-16 06:55] LABS: ANION GAP 16.6 mmol/L (8-16); BLOOD UREA NITROGEN < 5 mg/dL (7-26); BUN/CREATININE RATIO 8 (6-25); CALCIUM 8.2 mg/dL (8.4-10.2); CARBON DIOXIDE 22 mmol/L (22-29); CHLORIDE 101 mmol/L (98-107); CREATININE, SERUM 0.63 mg/dL (0.57-1.11); GLUCOSE 174 mg/dL (74-118); POTASSIUM 3.6 mmol/L (3.5-5.1); SODIUM 136 mmol/L (136-145)
[2022-03-16 08:19] VITALS: BP 161/71
[2022-03-16] MEDS: INSULIN LISPRO 100 UNIT/1 ML 3ML VIAL SQ SCH ×4 (08:30→21:30)
[2022-03-16] MEDS: ASCORBIC ACID 500 MG TAB PO SCH ×2 (08:53→16:21)
[2022-03-16] MEDS: DOCUSATE SODIUM 100 MG CAP PO SCH (08:53)
[2022-03-16] MEDS: CARVEDILOL 3.125 MG TAB PO SCH ×2 (08:54→16:21)
[2022-03-16] MEDS: SPIRONOLACTONE 25 MG TAB PO SCH (08:54)
[2022-03-16] MEDS: SENNOSIDES 8.6 MG TAB PO SCH (08:54)
[2022-03-16] MEDS: PANTOPRAZOLE SOD 40 MG TABEC PO SCH (08:54)
[2022-03-16] MEDS: LACTOBACILLUS ACIDOPHILUS CAPSULE PO SCH (08:55)
[2022-03-16] MEDS: POTASSIUM CHLORIDE 10MEQ EA PO SCH (08:55)
[2022-03-16] MEDS: ASPIRIN 81 MG CHEW TAB PO SCH (08:55)
[2022-03-16] MEDS: OXYBUTYNIN CHLORIDE 5 MG TAB PO SCH ×4 (08:56→21:26)
[2022-03-16] MEDS: LOSARTAN POTASSIUM 25 MG TAB PO SCH (08:56)
[2022-03-16] MEDS: METFORMIN HCL 500 MG TAB PO SCH (08:56)
[2022-03-16] MEDS: FUROSEMIDE 40 MG TAB PO SCH ×2 (08:59→16:22)
[2022-03-16] MEDS: SODIUM CHLORIDE 1 GM TAB PO SCH ×2 (09:00→16:23)
[2022-03-16] MEDS: INSULIN GLARGINE 100 UNITS/ML VIAL SQ SCH ×2 (09:00→21:31)
[2022-03-16] MEDS: FLUTICASONE PROPIONATE NASAL SPRAY NS SCH (09:00)
[2022-03-16 09:08] VITALS: BP 161/71
[2022-03-16] MEDS: ONDANSETRON HCL INJ 2MG/ML 2ML 2 MG/ML VIAL IV PRN ×3 (10:00→19:47)
[2022-03-16 12:09] VITALS: BP 113/66
[2022-03-16] MEDS ORDERED: SEVOFLURANE INHAL SOLN 250 ML PEN BTL ONE (13:49)
[2022-03-16] MEDS ORDERED: POVIDONE IODINE 0.05% 0.05 % ML PO ONE (13:49)
[2022-03-16] MEDS ORDERED: PROPOFOL IV EMULSION 10 MG/ML 20 ML VIAL ONE (13:49)
[2022-03-16] MEDS ORDERED: DEXAMETHASONE SOD PHOS INJ 4 MG/ML SDV ONE (13:49)
[2022-03-16] MEDS ORDERED: ONDANSETRON HCL INJ 2MG/ML 2ML 2 MG/ML VIAL ONE (13:49)
[2022-03-16 16:11] VITALS: BP 120/60
[2022-03-16] MEDS: COLLAGENASE 5 GM TUBE TOP SCH (18:08)
[2022-03-16 23:56] VITALS: BP 92/47
[2022-03-17] VITALS (9 sets, daily range): BP systolic 92–127; BP diastolic 47–68
[2022-03-17] MEDS: HYDROMORPHONE 1MG/1ML INJ IV PRN ×6 (02:10→21:46)
[2022-03-17] MEDS: LEVOTHYROXINE SODIUM 75 MCG TAB PO SCH (06:14)
[2022-03-17] MEDS: PREGABALIN 75 MG CAP PO SCH ×3 (06:14→17:15)
[2022-03-17] MEDS: CARVEDILOL 3.125 MG TAB PO SCH ×3 (09:00→17:00)
[2022-03-17] MEDS: LOSARTAN POTASSIUM 25 MG TAB PO SCH ×2 (09:00→09:08)
[2022-03-17] MEDS: OXYBUTYNIN CHLORIDE 5 MG TAB PO SCH ×4 (09:00→21:00)
[2022-03-17] MEDS: FLUTICASONE PROPIONATE NASAL SPRAY NS SCH (09:05)
[2022-03-17] MEDS: DOCUSATE SODIUM 100 MG CAP PO SCH (09:06)
[2022-03-17] MEDS: ASPIRIN 81 MG CHEW TAB PO SCH (09:06)
[2022-03-17] MEDS: SPIRONOLACTONE 25 MG TAB PO SCH (09:06)
[2022-03-17] MEDS: METFORMIN HCL 500 MG TAB PO SCH (09:09)
[2022-03-17] MEDS: LACTOBACILLUS ACIDOPHILUS CAPSULE PO SCH (09:10)
[2022-03-17] MEDS: POTASSIUM CHLORIDE 10MEQ EA PO SCH (09:10)
[2022-03-17] MEDS: FUROSEMIDE 40 MG TAB PO SCH ×2 (09:10→17:14)
[2022-03-17] MEDS: SENNOSIDES 8.6 MG TAB PO SCH (09:10)
[2022-03-17] MEDS: ASCORBIC ACID 500 MG TAB PO SCH ×2 (09:10→17:14)
[2022-03-17] MEDS: PANTOPRAZOLE SOD 40 MG TABEC PO SCH (09:10)
[2022-03-17] MEDS: SODIUM CHLORIDE 1 GM TAB PO SCH ×2 (09:10→17:14)
[2022-03-17] MEDS: COLLAGENASE 5 GM TUBE TOP SCH (09:11)
[2022-03-17] MEDS: ONDANSETRON HCL INJ 2MG/ML 2ML 2 MG/ML VIAL IV PRN (09:12)
[2022-03-17] MEDS: INSULIN LISPRO 100 UNIT/1 ML 3ML VIAL SQ SCH ×4 (09:14→21:08)
[2022-03-17] MEDS: INSULIN GLARGINE 100 UNITS/ML VIAL SQ SCH ×2 (09:14→21:08)
[2022-03-17] MEDS: DICLOFENAC SOD 1% GEL 100 GM TUBE TP SCH (18:48)
== END 2022-03-17 22:30 | DRG 347 ==
LOC: MED/SURG2 16:24
PROC: 8E0ZXY6 Isolation (ICD-10-PCS; 2022-03-11)
PROC: 0WQFXZ2 Repair Abdominal Wall, Stoma, External Approach (ICD-10-PCS; principal; 2022-03-15 18:50)
DX: K94.02 Colostomy infection (principal); L89.154 Pressure ulcer of sacral region, stage 4; U07.1 COVID-19; E03.9 Hypothyroidism, unspecified; I10 Essential (primary) hypertension; D63.8 Anemia in other chronic diseases classified elsewhere; R33.9 Retention of urine, unspecified; E66.9 Obesity, unspecified; Z68.31 Body mass index [BMI] 31.0-31.9, adult; G89.4 Chronic pain syndrome; N31.9 Neuromuscular dysfunction of bladder, unspecified; Z79.899 Other long term (current) drug therapy; Z88.1 Allergy status to other antibiotic agents; Z88.2 Allergy status to sulfonamides; Z88.8 Allergy status to other drugs, medicaments and biological substances; I48.91 Unspecified atrial fibrillation; Z79.01 Long term (current) use of anticoagulants; R25.2 Cramp and spasm
CPT/HCPCS: 36415; 71045; 74176; 80048; 80053; 82607; 82728; 82746; 82948; 83036; 83540; 83735; 84443; 84466; 85025; 87040; 96361; 97139; 99251; J1100; J1170; J1650; J1815; J2250; J2270; J2405; J2543; J3475; J3480; J7030